=== PATIENT | female | born 1935 | race Caucasian/White ===

== ENCOUNTER 2016-11-12 17:54 | Inpatient (IN) | payer MEDICARE, OTHER ==
[~2016-11-12] VITALS: Ht 165.1 cm; Wt 83.9 kg
[~2016-11-12 17:54] MED LIST: DIGO250T72 PO; FURO-33 PO; LEVO25TA49 PO; LOSA50TA17 PO; MECL12.585 PO; MULT-806 PO; SERT-80 PO; WARF5TAB6 PO; WARF5TAB67 PO; [UNRECOGNIZED DRUG - CODE] PO
--- OUTSIDE RECORDS SUMMARY | 2016-11-12 17:59 | XMS REPORT | Continuity of Care Document ---
Author Author [facility] Organization [facility] Address Unknown Phone Unavailable Support Name Relationship Address Phone JOSIAH PEREZ MD Caregiver [address] [place] [address] [place] [address] LAUREN GARCIA DO Caregiver [address] [place] [address] DAKOTA GRIDER Next Of Kin [address] [place] [address] Insurance Providers Payer Name Policy Number Subscriber Name Relationship Medicare [id number] Regi Torres 20 Self [facility] [id number] Johnny Torres 01 Spouse Advance Directives Directive Response Recorded Date/Time Advanced Directives Type Living Will 03/26/14 7:22am Problems Medical Problems Problem Onset Date Status LLL Pneumonia Unknown Active Laceration of face without complication Unknown Active Contusion of head Unknown Active Laceration of face, complex Unknown Active Medications Medication Dose Route Sig Days/Qty Instructions Order Date Discontinued Date Status Warfarin Sodium 5 Mg PO ECHAVARRIA-TU-TH-SA 08/04/12 Active Warfarin Sodium 7.5 Mg PO -W-F 08/04/12 Active Sertraline Hcl 50 Mg PO DAILY 08/04/12 Active Losartan Potassium 50 Mg PO DAILY 08/04/12 Active Digoxin 250 Mcg PO DAILY 08/04/12 Active Multivitamins 1 Tab PO DAILY 08/04/12 Active Furosemide 40 Mg PO DAILY 08/04/12 Active Pravastatin Sodium 5 Mg PO BEDTIME 07/29/13 Active Labetalol Hcl 150 Mg PO TWICE A DAY 07/29/13 Active Levothyroxine Sodium 25 Mcg PO DAILY 07/29/13 Active Cholecalciferol (Vitamin D3) DAILY 03/26/14 Active Tramadol HCl 1-2 Tab PO Q6H/0300,0900,1500,2100 PRN headache 20 Qty Active Social History Social History Problem Response Recorded Date/Time Smoking Status Never smoker 03/26/2014 7:22am Hx Substance Use No 03/26/2014 7:22am Hx Alcohol Use No 03/26/2014 7:22am Has the pt used tobacco in the last 12 months No 07/29/2013 12:01am Query Response Start Date Stop Date Smoking Status Never smoker Hospital Discharge Instructions No hospital discharge instructions. Plan of Care No plan of care. Functional Status Query Response Date Recorded Physical Hygiene Self March 26, 2014 7:22am Disabilities None March 26, 2014 7:22am Devices Used None March 26, 2014 7:22am Dressing Self March 26, 2014 7:22am Ambulation Self March 26, 2014 7:22am Diet Self March 26, 2014 7:22am Mental Status Alert March 26, 2014 10:51am Disabilities None March 26, 2014 7:22am Devices Used None March 26, 2014 7:22am Physical Hygiene Self March 26, 2014 7:22am Dressing Self March 26, 2014 7:22am Ambulation Self March 26, 2014 7:22am Diet Self March 26, 2014 7:22am Allergies, Adverse Reactions, Alerts Allergen Type Severity Reaction Status Last Updated Erythromycin base Allergy Intermediate HIVES Active 03/26/14 Immunizations Name Given Type Hx Influenza Vaccination Y 06/2013 Historical Hx Pneumococcal Vaccination Y 06/2013 Historical Hx Tetanus, Diptheria, Pertussis LAST 5 YRS Historical Hx Influenza Vaccination Y 06/2013 Historical Hx Tetanus, Diptheria, Pertussis LAST 5 YRS Historical Vital Signs Acute Vital Signs Vital Response Date/Time Temperature (Fahrenheit) 96.8 deg F (96.8 - 99.1) Temperature (Calculated Celsius) 36.78578 degrees C (36.0 - 37.3) Pulse Rate (adult) 76 bpm (60 - 100) Respiratory Rate 20 breaths/min (10 - 20) O2 Sat by Pulse Oximetry 94 % (90 - 100) Blood Pressure 140/64 mm Hg Height 5 ft 5 in Weight 187 lb Body Mass Index 31.0 kg/m^2 Results Test Source Date Result Interp. Ref. Range Comments Activated Partial Thromboplast Time March 26, 2014 8:00am 67.9 SEC H 24 -36 Alanine Aminotransferase (ALT/SGPT) March 26, 2014 8:00am 24 U/L N 9- 52 Albumin March 26, 2014 8:00am 4.0 G/DL N 3.5-5.0 Albumin/Globulin Ratio March 26, 2014 8:00am 1.7 RATIO N 1.1-2.2 Alkaline Phosphatase March 26, 2014 8:00am 84 U/L N 38-126 Amylase Level July 28, 2013 9:07pm 45 U/L N 30-110 Anion Gap March 26, 2014 8:00am 10 MEQ/L N 5-15 Aspartate Amino Transf (AST/SGOT) March 26, 2014 8:00am 18 U/L N 14-36 BUN/Creatinine Ratio March 26, 2014 8:00am 30 RATIO H 6-26 Band Neutrophils # July 29, 2013 5:22am 3.7 T/MM3 - Band Neutrophils % July 29, 2013 5:22am 32.0 % DH 0-6 Basophils # (Auto) March 26, 2014 8:00am 0.0 T/MM3 N 0-0.2 Basophils (%) (Auto) March 26, 2014 8:00am 0.2 % N 0-2 Blood Urea Nitrogen March 26, 2014 8:00am 21.0 MG/DL H 7-17 Calcium Level March 26, 2014 8:00am 9.2 MG/DL N 8.4-10.2 Calculated Osmolality March 26, 2014 8:00am 274 MOSM/KG N 261-280 Carbon Dioxide Level March 26, 2014 8:00am 28 MEQ/L N 22-30 Chloride Level March 26, 2014 8:00am 103 MEQ/L N 98-107 Creatinine March 26, 2014 8:00am 0.7 MG/DL N 0.7-1.2 D-Dimer August 05, 2012 4:38am < 150 NG/ML 0-230 <224 NG/ML= PRESUMPTIVE NEGATIVE FOR PE OR DVT>224 NG/ML=ADDITIONAL EVALUATION FOR PE OR DVT RECOMMENDED Digoxin Level March 26, 2014 8:00am 1.1 NG/ML N 0.8-2.0 Eosinophils # (Auto) March 26, 2014 8:00am 0.2 T/MM3 N 0-0.5 Eosinophils # (Manual) July 28, 2013 9:07pm 0.1 T/MM3 N 0-0.5 Eosinophils % (Manual) July 28, 2013 9:07pm 1.0 % N 0-4 Eosinophils (%) (Auto) March 26, 2014 8:00am 2.7 % N 0-4 Escherichia coli 0157 Antigen July 29, 2013 2:30pm Negative - Has specimen been collected/obtained? Y Globulin March 26, 2014 8:00am 2.4 G/DL N 2.4-3.6 Glucose Level March 26, 2014 8:00am 105 MG/DL N 65-110 Hematocrit March 26, 2014 8:00am 40.2 % N 36-46 Hemoglobin March 26, 2014 8:00am 13.2 GM/DL N 12-16 Influenza Type A Antigen July 28, 2013 10:37pm Positive - This test can not distinguish influenza A virus subtypes,e.g., seasonal influenza A and novel influenza A (H1N1). Influenza Type B Antigen July 28, 2013 10:37pm Negative - Negative for Flu B protein antigen. Assay sensitivity isbetween 65-83%. A negative result does not exclude influenza virus infection. "Influenza FA" may be ordered if clinical presentation warrants confirmatory testing. Lipase July 28, 2013 9:07pm 35 U/L N 23-300 Lymphocytes # (Auto) March 26, 2014 8:00am 0.8 T/MM3 L 1-4.8 Lymphocytes # (Manual) July 29, 2013 5:22am 0.7 T/MM3 L 1-4.8 Lymphocytes % (Manual) July 29, 2013 5:22am 6.0 % L 23-45 Lymphocytes (%) (Auto) March 26, 2014 8:00am 14.4 % L 23-45 Magnesium Level August 01, 2013 6:00am 1.9 MG/DL N 1.6-2.3 Mean Corpuscular Hemoglobin March 26, 2014 8:00am 30.1 UUG N 26-34 Mean Corpuscular Hemoglobin Concent March 26, 2014 8:00am 32.8 GM/DL N 31-37 Mean Corpuscular Volume March 26, 2014 8:00am 91.6 UM3 N 80-100 Mean Platelet Volume March 26, 2014 8:00am 10.9 UM3 N 9.4-12.4 Monocytes # (Auto) March 26, 2014 8:00am 0.5 T/MM3 N 0-0.8 Monocytes # (Manual) July 29, 2013 5:22am 0.1 T/MM3 N 0-0.8 Monocytes % (Manual) July 29, 2013 5:22am 1.0 % N 0-9.0 Monocytes (%) (Auto) March 26, 2014 8:00am 9.1 % H 0-9.0 Neutrophils # (Auto) March 26, 2014 8:00am 4.0 T/MM3 N 1.8-7.7 Neutrophils # (Manual) July 29, 2013 5:22am 7.1 T/MM3 N 1.8-7.7 Neutrophils % (Manual) July 29, 2013 5:22am 61.0 % N 33-66 Neutrophils (%) (Auto) March 26, 2014 8:00am 73.4 % H 33-66 Platelet Count March 26, 2014 8:00am 136 T/MM3 N 130-400 Potassium Level March 26, 2014 8:00am 4.1 MEQ/L N 3.6-5 Prealbumin July 29, 2013 5:22am 16.3 MG/DL L 17.6-36.0 Prothromb Time International Ratio March 26, 2014 8:00am 2.81 H 0.81- 1.09 THERAPUTIC RANGE=2.00-3.00 FOR ANTI-THROMBOSIS THERAPUTIC RANGE=2.50- 3.50 FOR IMPLANTED VALVE RDW Standard Deviation March 26, 2014 8:00am 44.3 FL N 36.9-50.2 Red Blood Count March 26, 2014 8:00am 4.39 M/MM3 N 4.00-5.20 Sodium Level March 26, 2014 8:00am 141 MEQ/L N 134-144 Stool Occult Blood July 29, 2013 2:30pm Negative - Has specimen been collected/obtained? Y Stool for White Cells July 29, 2013 2:30pm Negative - Has specimen been collected/obtained? Y Thyroid Stimulating Hormone (TSH) July 29, 2013 5:22am 0.68 MIU/L N 0.47-4.68 COMMENT blood in lab Total Bilirubin March 26, 2014 8:00am 0.60 MG/DL N 0.20-1.30 Total Protein March 26, 2014 8:00am 6.4 G/DL N 6.3-8.2 Troponin I March 26, 2014 8:00am < 0.012 ng/ml 0-0.12 Urine Bacteria March 26, 2014 10:52am None seen - Has specimen been collected/obtained? Y Urine Bilirubin March 26, 2014 10:52am Negative - Has specimen been collected/obtained? Y Urine Blood March 26, 2014 10:52am 1+ H - Has specimen been collected/ obtained? Y Urine Collection Type March 26, 2014 10:52am Voided-not cc-midstr - Has specimen been collected/obtained? Y Urine Color March 26, 2014 10:52am Yellow - Has specimen been collected/obtained? 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 Urine Glucose (UA) March 26, 2014 10:52am Negative - Has specimen been collected/obtained? Y Urine Ketones March 26, 2014 10:52am Negative - Has specimen been collected/obtained? Y Urine Leukocyte Esterase March 26, 2014 10:52am Negative - Has specimen been collected/obtained? Y Urine Mucus July 28, 2013 10:20pm Present - Has specimen been collected/obtained? Y Urine Nitrite March 26, 2014 10:52am Negative - Has specimen been collected/obtained? Y Urine Protein March 26, 2014 10:52am Negative - Has specimen been collected/obtained? Y Urine RBC March 26, 2014 10:52am 1-3 /HPF - Has specimen been collected/obtained? Y Urine Specific [place] March 26, 2014 10:52am >=1.030 H - Has specimen been collected/obtained? Y Urine Squamous Epithelial Cells March 26, 2014 10:52am 0-5 - Has specimen been collected/obtained? Y Urine Turbidity March 26, 2014 10:52am Clear - Has specimen been collected/obtained? Y Urine Urobilinogen March 26, 2014 10:52am 0.2 EU/DL - Has specimen been collected/obtained? Y Urine WBC March 26, 2014 10:52am 0-1 /HPF - Has specimen been collected/obtained? Y Urine Yeast July 28, 2013 10:20pm 1+ H - Has specimen been collected/obtained? Y Urine pH March 26, 2014 10:52am 6.0 - Has specimen been collected/ obtained? Y Vitamin B12 Level July 29, 2013 5:22am 205 PG/ML L 239-931 White Blood Count March 26, 2014 8:00am 5.5 T/MM3 N 4.5-11.0 Chemistry Specimen Hemolysis March 26, 2014 8:00am < 15 0-25 0-25: No Hemolysis.26-70: Slight Hemolysis - can falsely elevate K and Urine Protein. 71-285: Moderate Hemolysis - can falsely elevate K, Troponin I, CA 19-9, PTH, CSF GLucose, and Urine Protein, and can falsely decrease Phenytoin. 286-999: Gross Hemolysis - can falsely elevate K, Troponin I, CA 19-9, PTH, CSF Glucose, and Urine Protine, and can falsely decrease Phenytoin. Recommend specimen recollection. Turbidity March 26, 2014 8:00am < 20 0-20 Glomerular Filtration Rate Calc March 26, 2014 8:00am 81 - Immature Granulocyte # (Auto) March 26, 2014 8:00am 0.01 T/MM3 N 0.00- 0.03 Immature Granulocyte % (Auto) March 26, 2014 8:00am 0.2 % N 0.0-0.5 Venous Blood Lactate July 28, 2013 9:07pm 1.0 MMOL/L N 0.6-2.2 Procalcitonin July 28, 2013 9:07pm 0.09 NG/ML - PCT </=0.5 ng/mL - sepsis not likely;PCT >0.5 and </=2 ng/mL - sepsis possible; PCT >2 ng/mL - sepsis likely; PCT >/=10 ng/mL - systemic inflammatory response - sepsis or septic shock highly indicated. Icterus Index March 26, 2014 8:00am < 2 0-7 C. difficile Toxin B Gene (PCR) July 29, 2013 2:30pm Negative - If Toxin A is clinically indicated, treat accordingly. Blood Culture Blood July 28, 2013 9:07pm NO GROWTH AFTER 5 DAYS Stool Culture Stool July 29, 2013 2:30pm Gram Stain Sputum-Expectorated Sputum July 29, 2013 2:30pm Urine Culture Urine, Straight Cath July 28, 2013 11:06pm Kleb Pneumoniae Ssp Pneumoniae Name: REGI TORRES Unit #: [id number] : 1935 Sex: F [place] [facility] [place] [facility] DOS: 03/06/14 Signed Report #: [id number] DIAGNOSTIC IMAGING REPORT TYPE OF EXAM: CT CHEST W/CONTRAST Dictated By: DONAL SILVA MD INDICATION: ITS.REASON: 785.[address] CHEST W/CONTRAST: Comparison: Chest CT dated February 10, 2013 Technique: Axial CT images were performed through the chest after the administration of intravenous contrast. Contrast: Omnipaque 300 75 mL Findings: Small right middle lobe noncalcified nodule on image number 35 is unchanged. Probable intrapulmonary lymph node along the minor fissure and image number 32 is stable. Small right lower lobe nodules are also unchanged. Nodules in the left lower lobe are stable. No definite new pulmonary nodules or masses. No pleural effusion or pneumothorax. Lungs are otherwise clear. No axillary or mediastinal lymphadenopathy. There is some mild asymmetric skin thickening of the left breast. This is unchanged. Moderate pericardial effusion is stable. Heart remains enlarged. The visualized portions of the upper abdomen show no significant finding. Small hiatal hernia. Impression: 1. Stable bilateral pulmonary nodules. These are most likely due to prior granulomatous infection. A repeat CT in one year could be performed to document two years of stability and confirm a benign etiology. 2. Asymmetric left breast skin thickening. This is consistent with the patient 's known history of radiation therapy. . Procedures No known history of procedures. Encounters Encounter Location Date/Time Departed Emergency Room [facility] 03/26/14 7:18am Registered Clinic [facility] 03/06/14 1:15pm Recent Diagnosis
--- OUTSIDE RECORDS SUMMARY | 2016-11-12 17:59 | XMS REPORT | Continuity of Care Document ---
Author Author [facility] Organization [facility] Address Unknown Phone Unavailable Support Name Relationship Address Phone LAUREN GARCIA DO Caregiver [address] [place] [address] ELODIA GUERRERO MD Caregiver [facility] [address] [place] [address] [address] [place] [address] DAKOTA GRIDER Next Of Kin [address] [place] [address] Insurance Providers Payer Name Policy Number Subscriber Name Relationship Medicare [id number] Mary Torres 20 Self [facility] [id number] Johnny Torres 01 Spouse Advance Directives Directive Response Recorded Date/Time Ordered Resuscitation Status Full Code 05/19/14 1:02pm Problems Medical Problems Problem Onset Date Status LLL Pneumonia Unknown Active Laceration of face without complication Unknown Active Contusion of head Unknown Active Laceration of face, complex Unknown Active Laceration of face without complication Unknown Active Medications Medication Dose Route Sig Days/Qty Instructions Order Date Discontinued Date Status Warfarin Sodium 5 Mg PO ECHAVARRIA-TU-TH-SA 08/04/12 Active Warfarin Sodium 7.5 Mg PO M-W-08/04/12 Active Sertraline Hcl 50 Mg PO DAILY 08/04/12 Active Losartan Potassium 50 Mg PO DAILY 08/04/12 Active Digoxin 250 Mcg PO DAILY 08/04/12 Active Multivitamins 1 Tab PO DAILY 08/04/12 Active Furosemide 40 Mg PO NEEDED 08/04/12 Active Labetalol Hcl 150 Mg PO TWICE A DAY 07/29/13 Active Levothyroxine Sodium 25 Mcg PO DAILY 07/29/13 Active Cholecalciferol (Vitamin D3) DAILY 03/26/14 Active Tramadol HCl 1-2 Tab PO Q6H/0300,0900,1500,2100 PRN headache 20 Qty Active Social History Social History Problem Response Recorded Date/Time Smoking Status Never smoker 05/22/2014 7:52am Chewing Tobacco Status No 05/22/2014 7:52am Hx Substance Use No 05/22/2014 7:52am Hx Alcohol Use No 05/22/2014 7:52am Has the pt used tobacco in the last 12 months No 05/22/2014 7:52am Query Response Start Date Stop Date Smoking Status Never smoker Hospital Discharge Instructions No hospital discharge instructions. Plan of Care No plan of care. Functional Status Query Response Date Recorded Physical Hygiene Self March 26, 2014 7:22am Physical Hygiene Self March 26, 2014 7:22am Allergies, Adverse Reactions, Alerts Allergen Type Severity Reaction Status Last Updated Angiotensin-converting enzyme inhibitor Adverse Reaction Unknown COUGH Active 05/19/14 Erythromycin base Allergy Intermediate HIVES Active 03/26/14 Pravastatin Adverse Reaction Unknown SIDE ACHE Active 05/19/14 Olmesartan Adverse Reaction Unknown COUGH Active 05/19/14 Rosuvastatin Adverse Reaction Unknown SIDE ACHE Active 05/19/14 Immunizations Name Given Type Hx Influenza Vaccination Y 05/2014 Historical Hx Pneumococcal Vaccination Y 06/2013 Historical Hx Tetanus, Diptheria, Pertussis LAST 5 YRS Historical Hx Influenza Vaccination Y 05/2014 Historical Hx Tetanus, Diptheria, Pertussis LAST 5 YRS Historical Vital Signs Acute Vital Signs Vital Response Date/Time Temperature (Fahrenheit) 97.9 deg F (96.8 - 99.1) Temperature (Calculated Celsius) 36.53286 degrees C (36.0 - 37.3) Temperature Source Temporal Pulse Rate (adult) 70 bpm (60 - 100) Respiratory Rate 16 breaths/min (10 - 20) O2 Sat by Pulse Oximetry 92 % (90 - 100) Oxygen Delivery Method Room Air Blood Pressure 104/58 mm Hg Blood Pressure Source Automatic Cuff Height 5 ft 6 in Weight 186 lb Body Mass Index 30.0 kg/m^2 Results Test Source Date Result Interp. [...] 9:07pm 45 U/L N 30-110 Anion Gap May 22, 2014 7:33am 9 MEQ/L N 5-15 COMMENT PRE-OP WILL CALL Aspartate Amino Transf (AST/SGOT) March 26, 2014 8:00am 18 U/L N 14-36 BUN/Creatinine Ratio May 22, 2014 7:33am 31 RATIO H 6-26 COMMENT PRE-OP WILL CALL Band Neutrophils # July 29, 2013 5:22am 3.7 T/MM3 - Band Neutrophils % July 29, 2013 5:22am 32.0 % DH 0-6 Basophils # (Auto) May 22, 2014 7:33am 0.0 T/MM3 N 0-0.2 COMMENT PRE-OP WILL CALL Basophils (%) (Auto) May 22, 2014 7:33am 0.6 % N 0-2 COMMENT PRE- OP WILL CALL Blood Urea Nitrogen May 22, 2014 7:33am 25.0 MG/DL H 7-17 COMMENT PRE-OP WILL CALL C. difficile Toxin B Gene (PCR) July 29, 2013 2:30pm Negative - If Toxin A is clinically indicated, treat accordingly. Calcium Level May 22, 2014 7:33am 9.7 MG/DL N 8.4-10.2 COMMENT PRE- OP WILL CALL Calculated Osmolality May 22, 2014 7:33am 272 MOSM/KG N 261-280 COMMENT PRE-OP WILL CALL Carbon Dioxide Level May 22, 2014 7:33am 30 MEQ/L N 22-30 COMMENT PRE-OP WILL CALL Chemistry Specimen Hemolysis May 22, 2014 7:33am < 15 0-25 0-25: No Hemolysis.26-70: Slight [...] can falsely decrease Phenytoin. Recommend specimen recollection. Chloride Level May 22, 2014 7:33am 100 MEQ/L N 98-107 COMMENT PRE- OP WILL CALL Creatinine May 22, 2014 7:33am 0.8 MG/DL N 0.7-1.2 COMMENT PRE-OP WILL CALL D-Dimer August 05, 2012 4:38am < 150 NG/ML 0-230 <224 NG/ML= PRESUMPTIVE NEGATIVE FOR PE OR DVT>224 NG/ML=ADDITIONAL EVALUATION FOR PE OR DVT RECOMMENDED Digoxin Level March 26, 2014 8:00am 1.1 NG/ML N 0.8-2.0 Eosinophils # (Auto) May 22, 2014 7:33am 0.2 T/MM3 N 0-0.5 COMMENT PRE-OP WILL CALL Eosinophils # (Manual) July 28, 2013 9:07pm 0.1 T/MM3 N 0-0.5 Eosinophils % (Manual) July 28, 2013 9:07pm 1.0 % N 0-4 Eosinophils (%) (Auto) May 22, 2014 7:33am 3.4 % N 0-4 COMMENT PRE- OP WILL CALL Escherichia coli 0157 Antigen July 29, 2013 2:30pm Negative - Has specimen been collected/obtained? Y Globulin March 26, 2014 8:00am 2.4 G/DL N 2.4-3.6 Glomerular Filtration Rate Calc May 22, 2014 7:33am 70 - COMMENT PRE-OP WILL CALL Glucose Level May 22, 2014 7:33am 97 MG/DL N 65-110 COMMENT PRE-OP WILL CALL Hematocrit May 22, 2014 7:33am 39.8 % N 36-46 COMMENT PRE-OP WILL CALL Hemoglobin May 22, 2014 7:33am 13.0 GM/DL N 12-16 COMMENT PRE-OP WILL CALL Icterus Index May 22, 2014 7:33am < 2 0-7 COMMENT PRE-OP WILL CALL Immature Granulocyte # (Auto) May 22, 2014 7:33am 0.02 T/MM3 N 0.00- 0.03 COMMENT PRE-OP WILL CALL Immature Granulocyte % (Auto) May 22, 2014 7:33am 0.4 % N 0.0-0.5 COMMENT PRE-OP WILL CALL Influenza Type A Antigen July 28, 2013 [...] 35 U/L N 23-300 Lymphocytes # (Auto) May 22, 2014 7:33am 0.9 T/MM3 L 1-4.8 COMMENT PRE-OP WILL CALL Lymphocytes # (Manual) July 29, 2013 5:22am 0.7 T/MM3 L 1-4.8 Lymphocytes % (Manual) July 29, 2013 5:22am 6.0 % L 23-45 Lymphocytes (%) (Auto) May 22, 2014 7:33am 19.7 % L 23-45 COMMENT PRE-OP WILL CALL Magnesium Level August 01, 2013 6:00am 1.9 MG/DL N 1.6-2.3 Mean Corpuscular Hemoglobin May 22, 2014 7:33am 30.1 UUG N 26-34 COMMENT PRE-OP WILL CALL Mean Corpuscular Hemoglobin Concent May 22, 2014 7:33am 32.7 GM/DL N 31-37 COMMENT PRE-OP WILL CALL Mean Corpuscular Volume May 22, 2014 7:33am 92.1 UM3 N 80-100 COMMENT PRE-OP WILL CALL Mean Platelet Volume May 22, 2014 7:33am 10.6 UM3 N 9.4-12.4 COMMENT PRE-OP WILL CALL Monocytes # (Auto) May 22, 2014 7:33am 0.4 T/MM3 N 0-0.8 COMMENT PRE-OP WILL CALL Monocytes # (Manual) July 29, 2013 5:22am 0.1 T/MM3 N 0-0.8 Monocytes % (Manual) July 29, 2013 5:22am 1.0 % N 0-9.0 Monocytes (%) (Auto) May 22, 2014 7:33am 8.0 % N 0-9.0 COMMENT PRE- OP WILL CALL Neutrophils # (Auto) May 22, 2014 7:33am 3.2 T/MM3 N 1.8-7.7 COMMENT PRE-OP WILL CALL Neutrophils # (Manual) July 29, 2013 5:22am 7.1 T/MM3 N 1.8-7.7 Neutrophils % (Manual) July 29, 2013 5:22am 61.0 % N 33-66 Neutrophils (%) (Auto) May 22, 2014 7:33am 67.9 % H 33-66 COMMENT PRE-OP WILL CALL Platelet Count May 22, 2014 7:33am 145 T/MM3 N 130-400 COMMENT PRE- OP WILL CALL Potassium Level May 22, 2014 7:33am 4.1 MEQ/L N 3.6-5 COMMENT PRE- OP WILL CALL Prealbumin July 29, 2013 5:22am 16.3 MG/DL L 17.6-36.0 Procalcitonin July 28, 2013 9:07pm 0.09 NG/ML - PCT </=0.5 ng/mL - sepsis not likely;PCT >0.5 and </=2 ng/mL - sepsis possible; PCT >2 ng/mL - sepsis likely; PCT >/=10 ng/mL - systemic inflammatory response - sepsis or septic shock highly indicated. Prothromb Time International Ratio May 22, 2014 7:33am 1.23 H 0.81- 1.09 THERAPUTIC RANGE=2.00-3.00 FOR ANTI-THROMBOSIS THERAPUTIC RANGE=2.50- 3.50 FOR IMPLANTED VALVE RDW Standard Deviation May 22, 2014 7:33am 45.6 FL N 36.9-50.2 COMMENT PRE-OP WILL CALL Red Blood Count May 22, 2014 7:33am 4.32 M/MM3 N 4.00-5.20 COMMENT PRE-OP WILL CALL Sodium Level May 22, 2014 7:33am 139 MEQ/L N 134-144 COMMENT PRE- OP WILL CALL Stool Occult Blood July 29, 2013 2:30pm [...] 26, 2014 8:00am < 0.012 ng/ml 0-0.12 Turbidity May 22, 2014 7:33am < 20 0-20 COMMENT PRE-OP WILL CALL Urine Bacteria March 26, 2014 10:52am None [...] 28, 2013 10:20pm Cult reflexed &setup - [employer]. Urine Glucose (UA) March 26, 2014 10:52am [...] Has specimen been collected/obtained? Y Urine Specific [place] March 26, 2014 10:52am >=1.030 H - [...] - Has specimen been collected/ obtained? Y Venous Blood Lactate July 28, 2013 9:07pm 1.0 MMOL/L N 0.6-2.2 Vitamin B12 Level July 29, 2013 5:22am 205 PG/ML L 239-931 White Blood Count May 22, 2014 7:33am 4.7 T/MM3 N 4.5-11.0 COMMENT PRE-OP WILL CALL Blood Culture Blood July 28, 2013 9:07pm NO GROWTH AFTER 5 DAYS Stool Culture Stool July 29, 2013 2:30pm Gram Stain Sputum-Expectorated Sputum July 29, 2013 2:30pm Urine Culture Urine, Straight Cath July 28, 2013 11:06pm Kleb Pneumoniae Ssp Pneumoniae Name: MARY TORRES Unit #: [id number] : 1935 Sex: F Loc / Svc: ED DOS: 03/26/14 Signed Report #: [id number] DIAGNOSTIC IMAGING REPORT TYPE OF EXAM: CT CERVICAL SPINE W/O CONTRAST Dictated By: ROBY GUTIERREZ MD INDICATION: ITS.REASON: fall, head injury--neck pain CT CERVICAL SPINE W/O CONTRAST: Moderate to severe multilevel cervical spondylosis, due to multilevel degenerative changes. These include discogenic disease, facet joint arthropathy, and uncovertebral joint hypertrophy. However, no acute bony abnormality. No fracture. . Procedures Procedure Status Date Provider(s) INTMD RPR FACE/MM 5.1-7.5 CM completed 03/26/14 JOSIAH PEREZ MD RPR F/E/E/N/L/M 2.5 CM/< completed 03/26/14 JOSIAH PEREZ MD THER/PROPH/DIAG INJ IV PUSH completed 03/26/14 Scar revision completed 05/22/14 ELODIA GUERRERO MD Encounters Encounter Location Date/Time Departed Emergency Room [facility] 03/26/14 7:18am Registered Clinic [facility] 03/06/14 1:15pm
[2016-11-12] MEDS ORDERED: TRAM50TA4 PO (18:15)
[2016-11-12] MEDS ORDERED: VALA500T42 PO (18:15)
[2016-11-12] MEDS ORDERED: LABE200T PO (18:15)
[2016-11-12] MEDS ORDERED: AMOX1TAB16 PO (18:16)
[2016-11-12] MEDS ORDERED: NORMAL SALINE 1,000 ML IV ONE (18:28)
[2016-11-12] MEDS ORDERED: ALBUTEROL/IPRATROPIUM INHAL. 2.5mg-0.5mg/3ml Neb. AEROSOL ONE (18:30)
[2016-11-12] MEDS ORDERED: CEFTRIAXONE I.V. (ER USE ONLY) 1 G in NORMAL SALINE 100 ML IV ONE (18:30)
--- NOTE | 2016-11-12 18:34 | ERPDOC ---
Departure Disposition Decision Date: Nov 12, 2016 Disposition Decision Time: 19:40 Disposition: 02 TO [facility] Impression Impression Impression: Primary Impression: CAP (community acquired pneumonia) Severity: Moderate Condition: Improved Seen By: Physician only Referrals: LAUREN GARCIA DO (Family) Problems/Meds/Labs Reviewed?: Yes Medications reviewed and manag: Yes Follow up care ordered?: Yes Mental Status: Alert, Oriented HPI - Dyspnea General Chief Complaint: Dyspnea/Respdistress Stated Complaint: TROUBLE BREATHING Time Seen by Provider: 18:06 Source: patient, family Exam Limitations: no limitations HPI - Dyspnea Initial Comments 81yo woman presents to the ER today with dyspnea. Pt has had progressive dyspnea at rest for the last 3 days. Saw her PCM today and was dx'ed with PNA. Was given an atbx in the office, but rx written was valtrex and tramadol. Pt has not improved since being seen/atbx in the AM. Occurred At: home Onset/Timing: Rapid, Getting worse Duration: other Severity: severe Activities at Onset: none Prior Episodes/Possible Cause: no prior episodes Modifying Factors: IMPROVES WITH: lying down, oxygen, rest, WORSE WITH: antibiotics, coughing Associated Symptoms: cough (Productive) Aspirin Treatment Today: contraindicated Allergies: Coded Allergies: erythromycin base (Verified Allergy, Unknown, HIVES, 11/12/16) Past History Past Medical History Metabolic: cancer, hypercholesterolemia, hypertension, hypothyroidism ENMT: allergies Cardiac: A-fib Hematologic: DVT Psychological: depression Surgical History General: gallbladder, other Family History Family PMH: FOUND: CT, cancer Vaccines Hx Influenza Vaccination: Yes (05/2014) Hx Pneumococcal Vaccination: Yes (06/2013) Review of Systems Constitutional Constitutional: DENIES: chills, fever Cardiovascular Cardiac: DENIES: chest pain, orthopnea Vascular: DENIES: pedal edema Pulmonary Respiratory: cough, dyspnea, sputum All other Systems All Other Systems: Reviewed and Negative Physical Exam General General Nourishment: well nourished, well developed, appears stated age, no acute distress, adult, obese General Body Habitus: well groomed Vitals and Pain First Documented Vital Signs Date Time Temp Pulse Resp B/P Pulse Ox O2 Delivery O2 Flow Rate FiO2 11/12/16 17:57 98.6 67 24 146/89 82 Room Air Weight: Kilograms: 83.000 Height (feet): 5 Height (inches): 5.50 Triage Pain Scale: RN VS reviewed by Provider: Yes Normal Exams: Head: Normocephalic w/o trauma Eyes: Pupils are PERRLA w/ EOMI, No scleral icterus, irritation ENMT: No facial trauma, nasal exudates, pharyngeal erythema Neck: Full range of motion, without adenopathy, JVD Lymphatic: No lymphadenopathy Musculoskeletal: No tenderness, or deformity noted Integumentary: No rashes, hives, or bruising noted Neurologic: Patient is alert, and oriented Psychiatric: Patient exhibits, appropriate attention Respiratory (brief) Respiratory: FOUND: equal bilaterally, rales (Througout with decreased air movement), symmetrical, NOT FOUND: clear all huston, wheezes Cardiovascular (brief) Cardiac: FOUND: regular rate, regular rhythm, NOT FOUND: click, gallop, murmur , pedal edema, peripheral edema, rub Capillary Refill: <2 sec Pulses: all distal extremities, equal, strong Abdomen (brief) Abdominal Brief: FOUND: bowel normo active x4, soft, NOT FOUND: distended, hepatosplenomegaly, pulsatile mass, tender Differential Diagnoses Considering: Acute Bronchitis, Asthma Exacerbation, COPD Exacerbation, Croup, Influenza, Pertussis, Pneumonia, Pneumothorax, Pulmonary Edema, Pulmonary Embolus, RSV, Sinusitis, Viral Syndrome Progress Results/Orders Orders Procedure Category Date Status Time Bmp - Basic Metabolic LAB 11/12/16 Complete Panel 18:28 Blood Gas, Arterial - LAB 11/12/16 Complete ABG 18:28 Probnp LAB 11/12/16 Complete 18:28 Cbc W/Auto LAB 11/12/16 Complete Diff-Reflex Manual 18:28 Blood Culture EZRA 11/12/16 In Process 18:28 D-Dimer LAB 11/12/16 Complete 18:28 PTT LAB 11/12/16 Complete 18:28 INR LAB 11/12/16 Complete 18:28 Troponin I W LAB 11/12/16 Complete Hemolysis Index 18:28 Ua, Dip Wreflex LAB 11/12/16 Logged Microsc & Chinese Herbalist 18:28 Influenza A/B By Pcr LAB 11/12/16 Logged 18:28 EKG EKG 11/12/16 Taken 18:28 Chest, Pa & Lateral RAD 11/12/16 Taken 18:28 Iv Lock (Ed Only) EDM 11/12/16 Transmitted 18:28 Normal Saline (Normal PHA 11/12/16 Complete Saline Iv) 18:28 Albuterol/Ipratropium PHA 11/12/16 Complete (Duoneb) 18:30 Methylprednisolone PHA 11/12/16 Complete Sod Succ (Solu-Medrol 18:30 Ceftriaxone I.V. (Er PHA 11/12/16 Complete Use Only) (Rocephin 18:30 Oxygen Administration EDM 11/12/16 Transmitted 18:28 Place In Facility: ED ADM 11/12/16 Transmitted Lab Results Laboratory Tests Test 11/12/16 18:50 11/12/16 18:54 Arterial Blood pH 7.388 Arterial Blood Partial Pressure CO2 46MMHG Arterial Blood pO2 at Patient Temp 76MMHG Arterial Blood HCO3 27MEQ/L Arterial Blood Total CO2 29MEQ/L Arterial Blood Oxygen Saturation 95.0% Arterial Blood Base Excess 2.0MMOL/L Oxygen Delivery Method (LAB) Nasal cannula,liters Blood Gas Oxygen Liter Flow 2 Blood Gas Oxygen Percent Given Blood Gas Vent Rate Blood Gas Tidal Volume ML White Blood Count 7.9T/MM3 Red Blood Count 3.96M/MM3 Hemoglobin 12.0GM/DL Hematocrit 37.2% Mean Corpuscular Volume 93.9UM3 Mean Corpuscular Hemoglobin 30.3UUG Mean Corpuscular Hemoglobin Concent 32.3GM/DL RDW Standard Deviation 46.1FL Platelet Count 119T/MM3 Mean Platelet Volume 10.9UM3 Immature Granulocyte % (Auto) % Neutrophils (%) (Auto) % Lymphocytes (%) (Auto) % Monocytes (%) (Auto) % Eosinophils (%) (Auto) % Basophils (%) (Auto) % Absolute Immature Granulocyte (auto T/MM3 Absolute Neutrophils (auto) T/MM3 Absolute Lymphocytes (auto) T/MM3 Absolute Monocytes (auto) T/MM3 Absolute Eosinophils (auto) T/MM3 Absolute Basophils (auto) T/MM3 Neutrophils % (Manual) 72.0% Band Neutrophils % 6.0% Lymphocytes % (Manual) 8.0% Monocytes % (Manual) 9.0% Eosinophils % (Manual) 4.0% Basophils % (Manual) 1.0% Absolute Neutrophils (Manual) 5.7T/MM3 Band Neutrophils # 0.5T/MM3 Lymphocytes # (Manual) 0.6T/MM3 Monocytes # (Manual) 0.7T/MM3 Eosinophils # (Manual) 0.3T/MM3 Basophils # (Manual) 0.1T/MM3 Red Cell Morphology Comment Normal Prothromb Time International Ratio 1.69 Activated Partial Thromboplast Time 63.0SEC D-Dimer < 150NG/ML Turbidity < 20 Sodium Level 145MEQ/L Potassium Level 4.6MEQ/L Chloride Level 105MEQ/L Carbon Dioxide Level 29MEQ/L Anion Gap 11MEQ/L Blood Urea Nitrogen 25.0MG/DL Creatinine 0.7MG/DL Glomerular Filtration Rate Calc 81 BUN/Creatinine Ratio 36RATIO Glucose Level 123MG/DL Calculated Osmolality 284MOSM/KG Calcium Level 9.4MG/DL Icterus Index < 2 Troponin I < 0.012ng/ml ZM-Tnt-Y-Type Natriuretic Peptide 1160PG/ML Chemistry Specimen Hemolysis < 15 Medications Current ED Medications Sodium Chloride (Normal Saline IV) 1,000 ml @ 125 mls/hr Q8H ONCE IV Last administered on 11/12/16 19:29; Start 11/12/16 at 18:28; Stop 11/13/16 at 02:27 ; Status DC Albuterol/ Ipratropium (Duoneb) 3 ml O ONCE AEROSOL Last administered on 18:47; Start 11/12/16 at 18:30; Stop 11/12/16 at 18:31; Status DC Methylprednisolone Sodium Succinate 125 mg 125 mg O ONCE IV Last administered on 11/12/16 19:26; Start 11/12/16 at 18:30; Stop 11/12/16 at 18:31; Status DC Ceftriaxone Sodium/Sodium Chloride (Rocephin/NS) 100 ml @ 200 mls/hr O ONCE IV Last administered on 11/12/16 19:29; Start 11/12/16 at 18:30; Stop at 18:59; Status DC EKG EKG : Rate: 60-100 Rhythm: atrial fibrillation [place]: normal QRS: normal Intervals: normal ST/T: non-specific changes Interpreted by: signing physician Consult/PCP Consult/PCP : Physician Contacted: Yong Hua Time Called: 19:37 Time of first response: 19:39 Type of discussion: Admit Discussion/PCP Discussion Details Will admit. Xray Xray : Xray: CXR PA/Lat Interpretation: Normal, Interpreted by TONIO Francis DO Nov 12, 2016 18:34
--- OUTSIDE RECORDS SUMMARY | 2016-11-12 18:39 | XMS REPORT | Continuity of Care Document ---
Author Author [facility] Organization [facility] Address Unknown Phone Unavailable Support Name Relationship Address Phone LAUREN GARCIA DO Caregiver [address] [place] [address] ELODIA GUERRERO MD Caregiver [facility] [address] [place] [address] [address] [place] [address] DAKOTA GRIDER Next Of Kin [address] [place] [address] Insurance Providers Payer Name Policy Number Subscriber Name Relationship Medicare [id number] Mary Torres 20 Self [facility] [id number] Johnny Torres 01 Spouse Advance Directives Directive [...] F (96.8 - 99.1) Temperature (Calculated Celsius) 36.50038 degrees C (36.0 - 37.3) Temperature Source [...] 28, 2013 10:20pm 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 Urine Glucose (UA) March 26, 2014 10:52am [...] Has specimen been collected/obtained? Y Urine Specific [place] March 26, 2014 10:52am >=1.030 H - [...] Ssp Pneumoniae Name: MARY TORRES Unit #: [id number] : 1935 Sex: F Loc / Svc: ED DOS: 03/26/14 Signed Report #: [id number] DIAGNOSTIC IMAGING REPORT TYPE OF EXAM: CT [...] Encounters Encounter Location Date/Time Departed Emergency Room [facility] 03/26/14 7:18am Registered Clinic [facility] 03/06/14 1:15pm
--- OUTSIDE RECORDS SUMMARY | 2016-11-12 18:39 | XMS REPORT | Continuity of Care Document ---
Author Author [facility] Organization [facility] Address Unknown Phone Unavailable Support Name Relationship Address Phone JOSIAH PEREZ MD Caregiver [address] [place] [address] [place] [address] LAUREN GARCIA DO Caregiver [address] [place] [address] DAKOTA GRIDER Next Of Kin [address] [place] [address] Insurance Providers Payer Name Policy Number Subscriber Name Relationship Medicare [id number] Regi Torres 18 Self 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 Urine Glucose (UA) March 26, 2014 10:52am [...] Has specimen been collected/obtained? Y Urine Specific [place] March 26, 2014 10:52am >=1.030 H - [...] Ssp Pneumoniae Name: REGI TORRES Unit #: [id number] : 1935 Sex: F Loc / [facility]: [facility] DOS: 03/06/14 Signed Report #: [id number] DIAGNOSTIC IMAGING REPORT TYPE OF EXAM: CT [...] Encounters Encounter Location Date/Time Departed Emergency Room [facility] 03/26/14 7:18am Registered Clinic [facility] 03/06/14 1:15pm Recent Diagnosis
[2016-11-12 19:02] LABS: HCT - HEMATOCRIT 37.2 % (36-46); MEAN CORPUSCULAR HGB 30.3 UUG (26-34); MEAN CORPUSCULAR HGB CONC(MCHC 32.3 GM/DL (31-37); MEAN CORPUSCULAR VOLUME 93.9 UM3 (80-100); MEAN PLATELET VOLUME 10.9 UM3 (9.4-12.4); RED BLOOD COUNT 3.96 M/MM3 (4.00-5.20); WBC - WHITE BLOOD COUNT 7.9 T/MM3 (4.5-11.0)
--- NOTE | 2016-11-12 19:02 | NUR ---
RADIOLOGY PT TO RADIOLOGY BY CART AT THIS TIME.
[2016-11-12 19:10] LABS: INR 1.69 (0.76-1.04); PROTHROMBIN TIME 18.4 SEC (9.31-12.49)
[2016-11-12 19:11] LABS: ANION GAP 11 MEQ/L (5-15); BUN/CREATININE RATIO 36 RATIO (6-26); CALCIUM 9.4 MG/DL (8.4-10.2); CHLORIDE 105 MEQ/L (98-107); CO2 - CARBON DIOXIDE 29 MEQ/L (22-30); CREATININE 0.7 MG/DL (0.7-1.2); GLOMERULAR FILTRATION RATE 81; GLUCOSE 123 MG/DL (65-110); POTASSIUM 4.6 MEQ/L (3.6-5); SODIUM 145 MEQ/L (134-144)
[2016-11-12 19:16] LABS: BAND NEUTROPHILS # 0.5 T/MM3; BASOPHILS # (MANUAL) 0.1 T/MM3 (0-0.2); EOSINOPHILS # (MANUAL) 0.3 T/MM3 (0-0.5); LYMPHOCYTES # (MANUAL) 0.6 T/MM3 (1-4.8); MONOCYTES # (MANUAL) 0.7 T/MM3 (0-0.8); NEUTROPHILS #(MANUAL)-ABSOLUTE 5.7 T/MM3 (1.8-7.7); TOTAL CELLS COUNTED 100 %
[2016-11-12 19:23] LABS: PROBNP 1160 PG/ML (0-175)
--- NOTE | 2016-11-12 19:23 | NUR ---
RETURN PT RETURNED FROM RADIOLOGY BY CART AT THIS TIME.
--- NOTE | 2016-11-12 19:35 | NUR ---
STATUS PT REPORTS FEELS EASIER TO BREATHE AFTER BREATHING TX. AUDIBLE WHEEZING STILL NOTED; HOWEVER, BREATH SOUNDS NOT DIMINISHED. DENIES FURTHER NEEDS AT THIS TIME. CALL LIGHT WITHIN REACH. VSS, WILL CONTINUE TO MONITOR.
--- OUTSIDE RECORDS SUMMARY | 2016-11-12 20:10 | XMS REPORT | Continuity of Care Document ---
Author Author [facility] Organization [facility] Address Unknown Phone Unavailable Support Name Relationship Address Phone JOSIAH PEREZ MD Caregiver [address] [place] [address] [place] [address] LAUREN GARCIA DO Caregiver [address] [place] [address] DAKOTA GRIDER Next Of Kin [address] [place] [address] Insurance Providers Payer Name Policy Number Subscriber Name Relationship Medicare [id number] Regi Torres 20 Self [facility] [id number] Johnny Torres 01 Spouse Advance Directives Directive [...] F (96.8 - 99.1) Temperature (Calculated Celsius) 36.99772 degrees C (36.0 - 37.3) Pulse Rate [...] 28, 2013 10:20pm 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 Urine Glucose (UA) March 26, 2014 10:52am [...] Has specimen been collected/obtained? Y Urine Specific [place] March 26, 2014 10:52am >=1.030 H - [...] Ssp Pneumoniae Name: REGI TORRES Unit #: [id number] : 1935 Sex: F Loc / [facility] DOS: 03/06/14 Signed Report #: [id number] DIAGNOSTIC IMAGING REPORT TYPE OF EXAM: CT [...] Encounters Encounter Location Date/Time Departed Emergency Room [facility] 03/26/14 7:18am Registered Clinic [facility] 03/06/14 1:15pm Recent Diagnosis
--- OUTSIDE RECORDS SUMMARY | 2016-11-12 20:10 | XMS REPORT | Continuity of Care Document ---
Author Author [facility] Organization [facility] Address Unknown Phone Unavailable Support Name Relationship Address Phone LAUREN GARCIA DO Caregiver [address] [place] [address] ELODIA GUERRERO MD Caregiver [facility] PLAST[facility] SURGERY [address] [place] [address] [address] [place] [address] DAKOTA GRIDER Next Of Kin [address] [place] [address] Insurance Providers Payer Name Policy Number Subscriber Name Relationship Medicare [id number] Mary Torres 20 Self 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 Urine Glucose (UA) March 26, 2014 10:52am [...] Has specimen been collected/obtained? Y Urine Specific [place] March 26, 2014 10:52am >=1.030 H - [...] Ssp Pneumoniae Name: MARY TORRES Unit #: [id number] : 1935 Sex: F Loc / Svc: ED DOS: 03/26/14 Signed Report #: [id number] DIAGNOSTIC IMAGING REPORT TYPE OF EXAM: CT [...] Encounters Encounter Location Date/Time Departed Emergency Room [facility] 03/26/14 7:18am Registered Clinic [facility] 03/06/14 1:15pm
[2016-11-12] MEDS ORDERED: CEFTRIAXONE 1 G in NORMAL SALINE 100 ML IV SCH (20:15)
[2016-11-12] MEDS ORDERED: AZITHROMYCIN 500 MG in NORMAL SALINE 250 ML IV SCH (20:15)
--- NOTE | 2016-11-12 20:16 | NUR ---
REPORT CALLED TO CHACHO DOLAN ON [facility]. DENIES QUESTIONS.
--- NOTE | 2016-11-12 20:25 | NUR ---
admit status alert,oriented, cooperative with admission process. BP remains elevated, taken manually. Will give scheduled labetalol. Denies h.a. States mild generalized discomfort "from falling" at home. Lg. bruise to RUE. Lower abdomen with large bruise, pt. states fell against the back of a chair. Sm. bruise to upper L thigh. Pt. repositions herself for comfort. Iv infusing, site without complications. Lungs with coarseness, bilat. Loose sounding cough, no sputum.
[2016-11-12 20:32] VITALS: BP 178/74; PULSE 82; RESP 22; TEMP 99.9; O2SAT 95
[2016-11-12 20:33] VITALS: Ht 165.1 cm; Wt 83.9 kg
[2016-11-12] MEDS ORDERED: LEVOFLOXACIN 750 mg IVPB 750 MG in D5W 150 ML IV SCH (21:30)
--- NOTE | 2016-11-12 21:46 | HPPDOC ---
GERTRUDIS MCGRAW MD 11/12/16 2138: HPI - Adult Date DATE: 11/12/16 TIME: 21:35 General Chief Complaint: weakness History of Present Illness This is a 81-year-old female who describes 3 days of increasing shortness of breath. The patient saw her primary care physician this morning who prescribed an antibiotic. The patient states that since she got home this morning she had continued shortness of breath with a cough productive of green sputum. The patient states in general she has not felt well for the past 2 weeks. The patient fell 2 over the past week. Non-syncopal. The patient denies fever chills or sweats. The patients evaluation in our emergency department demonstrates possibility of early right lower lobe infiltrate. The patient is mildly hypoxic requiring 2 L of oxygen. At this time the patient will be admitted for further treatment of community-acquired pneumonia and mild hypoxia. Past Medical History Past Medical History breast cancer HTN atrial fibrillation Surgical History Patient's Surgical History: cholcystectomy lumpectomy bilateral cataract extraction Current Medications Home Meds Reported Medications Amox Tr/Potassium Clavulanate (Amox Tr-K Clv 875-125 mg Tab) 875 Mg Tablet, 1 TAB PO BID for 7 Days starting 11/12/16 11/12/16 Tramadol HCl (Tramadol HCl) 50 Mg Tablet, 50 MG PO TID Y for PAIN 11/12/16 Valacyclovir HCl (Valacyclovir) 500 Mg Tablet, 1000 MG PO TID for 10 Days starting 11/12/16 11/12/16 Labetalol HCl (Labetalol HCl) 200 Mg Tablet, 100 MG PO BID 11/12/16 Levothyroxine Sodium (Synthroid) 25 Mcg Tablet, 25 MCG PO DAILY 07/29/13 Furosemide (Furosemide) 40 Mg Tablet, 40 MG PO PRN 08/04/12 Multivitamins (Multivitamin) 1 Tab Tablet, 1 TAB PO DAILY 08/04/12 Digoxin (Digoxin) 250 Mcg Tablet, 250 MCG PO DAILY 08/04/12 Losartan Potassium (Cozaar) 50 Mg Tablet, 50 MG PO DAILY 08/04/12 Sertraline Hcl (Zoloft) 50 Mg Tablet, 50 MG PO DAILY 08/04/12 Warfarin Sodium (Coumadin) 5 Mg Tablet, 5 MG PO DAILY 08/04/12 Allergies: Coded Allergies: erythromycin base (Verified Allergy, Unknown, HIVES, 11/12/16) Family History Family History: unkown at this time Social History Smoking Status: Never smoker Substance Use Type: does not use Marital Status: Sexuality: male partner Housing: house Household Members: spouse Current Occupational Status: retired Advance Directives: Yes DPOA for Healthcare Only (DAUGHTER ALFONSO) Review of Systems All Other Systems All Other Systems: Reviewed (remainder of 10-point ROS Neg.) Comments Patient denies headache, denies any change in her vision, denies any fevers chilling or sweating, nausea neck or jaw pain, patient denies any chest pain, has heart palpitations which are chronic, patient denies any change in her bowel movements, denies any urinary symptoms, the patient denies swelling to her legs, the patient generally just felt weak over the past 1-2 weeks, with 2 episodes of falling, patient does have bruising. Abdominal wall from his recent fall which is slowly healing, but she does have some residual abdominal wall pain, otherwise a 10 point review systems is negative except for outlined above Physical Exam General General Nourishment: well nourished, well developed, apparent age, adult General Body Habitus: well groomed Vital Signs Vital Signs Date Time Temp Pulse Resp B/P Pulse Ox O2 Delivery O2 Flow Rate FiO2 11/12/16 20:32 99.9 82 22 178/74 95 Nasal Cannula 2.00 Height (Feet): 5 Height (Inches): 5.00 Telemetry Rhythm: Atrial Fibrillation Eyes Brief: FOUND: EOMI, NOT FOUND: PERRL, other, scleral icterus Comments very diminished with scattered rhonchi,no wheezing appreciated Cardiovascular (brief) Capillary Refill: <2 sec Comments irreg, irreg, nomurmur Abdomen (brief) Abdominal Brief: FOUND: BS normo active x4, soft, NOT FOUND: distended, tender Musculoskeletal (brief) Musculoskeletal Brief: NOT FOUND: deformity, extremities move equally, loss of motion, other, spasm, tenderness Integumentary (brief) Integumentary Brief: FOUND: dry, pink, warm Neurologic (brief) Comments neurologically intact Neurologic RN Documented GCS Eye Opening: Verbal: Motor: Total: Psychiatric (brief) FOUND: alert, attentive, normal affect, oriented Laboratory Laboratory Tests Test 11/12/16 18:50 11/12/16 18:54 11/12/16 21:07 Arterial Blood pH 7.388 Arterial Blood Partial Pressure CO2 46MMHG Arterial Blood pO2 at Patient Temp 76MMHG Arterial Blood HCO3 27MEQ/L Arterial Blood Total CO2 29MEQ/L Arterial Blood Oxygen Saturation 95.0% Arterial Blood Base Excess 2.0MMOL/L Oxygen Delivery Method (LAB) Nasal cannula,liters Blood Gas Oxygen Liter Flow 2 Blood Gas Oxygen Percent Given Blood Gas Vent Rate Blood Gas Tidal Volume ML White Blood Count 7.9T/MM3 Red Blood Count 3.96M/MM3 Hemoglobin 12.0GM/DL Hematocrit 37.2% Mean Corpuscular Volume 93.9UM3 Mean Corpuscular Hemoglobin 30.3UUG Mean Corpuscular Hemoglobin Concent 32.3GM/DL RDW Standard Deviation 46.1FL Platelet Count 119T/MM3 Mean Platelet Volume 10.9UM3 Immature Granulocyte % (Auto) % Neutrophils (%) (Auto) % Lymphocytes (%) (Auto) % Monocytes (%) (Auto) % Eosinophils (%) (Auto) % Basophils (%) (Auto) % Absolute Immature Granulocyte (auto T/MM3 Absolute Neutrophils (auto) T/MM3 Absolute Lymphocytes (auto) T/MM3 Absolute Monocytes (auto) T/MM3 Absolute Eosinophils (auto) T/MM3 Absolute Basophils (auto) T/MM3 Neutrophils % (Manual) 72.0% Band Neutrophils % 6.0% Lymphocytes % (Manual) 8.0% Monocytes % (Manual) 9.0% Eosinophils % (Manual) 4.0% Basophils % (Manual) 1.0% Absolute Neutrophils (Manual) 5.7T/MM3 Band Neutrophils # 0.5T/MM3 Lymphocytes # (Manual) 0.6T/MM3 Monocytes # (Manual) 0.7T/MM3 Eosinophils # (Manual) 0.3T/MM3 Basophils # (Manual) 0.1T/MM3 Red Cell Morphology Comment Normal Prothromb Time International Ratio 1.69 Activated Partial Thromboplast Time 63.0SEC D-Dimer < 150NG/ML Turbidity < 20 Sodium Level 145MEQ/L Potassium Level 4.6MEQ/L Chloride Level 105MEQ/L Carbon Dioxide Level 29MEQ/L Anion Gap 11MEQ/L Blood Urea Nitrogen 25.0MG/DL Creatinine 0.7MG/DL Glomerular Filtration Rate Calc 81 BUN/Creatinine Ratio 36RATIO Glucose Level 123MG/DL Calculated Osmolality 284MOSM/KG Calcium Level 9.4MG/DL Icterus Index < 2 Troponin I < 0.012ng/ml RY-[id number]-[id number] Natriuretic Peptide 1160PG/ML Chemistry Specimen Hemolysis < 15 Radiology CXR with no acute infiltrate. possible early right lower lobe Assessment & Plan Assessment 1. Community acquired pneumonia acute present on admission: Patient has allergies to erythromycin. Will cover with Levaquin, cultures have been ordered , adjust antibiotics as indicated, at that the chest x-ray does demonstrate what appears to be an early right lower lobe infiltrate. Sputum is definitely infected in appearance. 2. Hypoxia mild resolution: Not hypoxic respiratory failure. Secondary to #1. Well monitor while hospitalized. Should improve as infectious process improves 3. Hypertension chronic present on admission: Patient apparently had her labetalol dose decreased by her PCP recently. Currently patient is hypertensive. Well return back to her prior level of labetalol. 4. H her fibrillation chronic present on admission: Rate controlled, on digoxin , beta zahraa, Coumadin, INR is 1.7, will follow INR as patient will be started on quinolone, this should increase INR, 5. Dyslipidemia chronic present on admission continue statin 6. Dehydration acute present admission: Patients BUNs 25 creatinine 0.7 patient is having orthostatic events it sounds like. Magalie held Lasix. Gentle hydration. Reassess in the morning. Consider holding Lasix at least short- term. 7. DVT prophylaxis: Coumadin DVT Prophylaxis: Coumadin Code Status Full Code, unverified Hospital Course Summary Disclaimer The hospital course summary below is not to be considered part of the above Progress Note. OMARI CORONA MD 11/13/16 1244: Past Medical History Current Medications Home Meds Reported Medications Amox Tr/Potassium Clavulanate (Amox Tr-K Clv 875-125 mg Tab) 875 Mg Tablet, 1 TAB PO BID for 7 Days starting 11/12/16 11/12/16 Tramadol HCl (Tramadol HCl) 50 Mg Tablet, 50 MG PO TID Y for PAIN 11/12/16 Valacyclovir HCl (Valacyclovir) 500 Mg Tablet, 1000 MG PO TID for 10 Days starting 11/12/16 11/12/16 Labetalol HCl (Labetalol HCl) 200 Mg Tablet, 100 MG PO BID 11/12/16 Levothyroxine Sodium (Synthroid) 25 Mcg Tablet, 25 MCG PO DAILY 07/29/13 Furosemide (Furosemide) 40 Mg Tablet, 40 MG PO PRN 08/04/12 Multivitamins (Multivitamin) 1 Tab Tablet, 1 TAB PO DAILY 08/04/12 Digoxin (Digoxin) 250 Mcg Tablet, 250 MCG PO DAILY 08/04/12 Losartan Potassium (Cozaar) 50 Mg Tablet, 50 MG PO DAILY 08/04/12 Sertraline Hcl (Zoloft) 50 Mg Tablet, 50 MG PO DAILY 08/04/12 Warfarin Sodium (Coumadin) 5 Mg Tablet, 5 MG PO DAILY 08/04/12 Allergies: Coded Allergies: erythromycin base (Verified Allergy, Unknown, HIVES, 11/12/16) Assessment & Plan Assessment History and physical Chief complaint weakness, cough. History of present illness: 81-year-old female with shortness of air increasing over 3 days. Patient has had worsening weakness over the past 2 weeks, and hasn' t fact fallen twice due to the weakness. No loss of consciousness either time. She feels like she's had a fever intermittently the last 3 days, increasing sputum, more difficulty getting air. Was seen by her primary care provider yesterday morning and started on a new medication, , however symptoms worsen during the day she presented to the ED. Normally does not require oxygen, but did require 2 L nasal cannula while in the emergency department in order to keep sats greater than 92%. Past medical history: Breast cancer hypertension and atrial fibrillation. Surgical history: Cholecystectomy, lumpectomy, bilateral cataract surgery. Medications: Augmentin started yesterday morning, tramadol, valacyclovir, labetalol, levothyroxine, Lasix, multivitamin, digoxin, Cozaar, Zoloft, warfarin. Allergies NKDA Family history negative, Social history no tobacco use, no alcohol use, no drug usage. Review of systems: Review of 10 systems is negative except for those listed above. ROS above reviewed and I agree. Physical exam: Telemetry, and atrial fibrillation. HEENT within normal limits, pupils equal and reactive, extraocular movement intact. Cardiac irregularly irregular, lungs mild wheezing and crackles bilateral. Abdomen positive bowel sounds nontender no masses. Extremities 1+ pitting edema bilateral lower extremities. Laboratory: White count 7.9 hematocrit 37.2, platelets 119. Patient is 72% neutrophils. D-dimer less than 150 troponin negative, pro BNP 1160. Imaging: Acute changes noted on chest x-ray. Assessment and plan #1. Acquired pneumonia. Patient is appropriate for pneumonia diagnosis despite essentially negative chest x-ray at this time. She was initially started on Rocephin and Zithromax through the emergency department, but has an erythromycin allergy, therefore we will discontinue the Zithromax, and Rocephin. Start with Levaquin which was ordered overnight. Sputum culture and blood cultures obtained. #2 Dehydration, mild. IV fluids given, Lasix held. #3 COPD. Acute reactive airway disease exacerbation. Patient given nebulized treatments every 6 hours scheduled, Solu-Medrol initially given 125 mg IV, will continue with 62.5 mg IV every 6 hours. 4 atrial fibrillation. Rate controlled meds continue his current. #5 hypertension labetalol dose continued as increased by PCP. #60 and also maintenance. DVT prophylaxis, patient is on Coumadin SCDs also ordered. Current outpatient medications continued. GERTRUDIS Escobedo M.D., MD Nov 12, 2016 21:38 OMARI CORONA MD Nov 13, 2016 12:44
--- NOTE | 2016-11-12 22:00 | NUR ---
Dr. Dr. Coffman visits w/ pt. per telemed screen. Pt. unsure of allergy, old charts indicate erythromycin. Will change antibiotic to Levaquin
[2016-11-12] MEDS: LABETALOL 100 MG TABLET PO SCH (22:02)
[2016-11-13] VITALS (13 sets, daily range): BP systolic 152–178; BP diastolic 76–105; PULSE 0–89; RESP 18–22; TEMP 96–99.6; O2SAT 94–99
[2016-11-13] MEDS: ALBUTEROL INH.SOLN. 2.5mg/3ml (0.083%) Neb. AEROSOL PRN (04:37)
--- NOTE | 2016-11-13 04:44 | NUR ---
elim assisted to BR, denies dizziness as up. Inc. of urine, also voids. Spec. to lab
[2016-11-13 05:16] LABS: HCT - HEMATOCRIT 36.9 % (36-46); HGB - HEMOGLOBIN 11.9 GM/DL (12-16); MEAN CORPUSCULAR HGB 30.3 UUG (26-34); MEAN CORPUSCULAR HGB CONC(MCHC 32.2 GM/DL (31-37); MEAN CORPUSCULAR VOLUME 93.9 UM3 (80-100); MEAN PLATELET VOLUME 11.4 UM3 (9.4-12.4); RED BLOOD COUNT 3.93 M/MM3 (4.00-5.20); WBC - WHITE BLOOD COUNT 5.6 T/MM3 (4.5-11.0)
[2016-11-13 05:30] LABS: ANION GAP 11 MEQ/L (5-15); BUN/CREATININE RATIO 30 RATIO (6-26); CALCIUM 9.2 MG/DL (8.4-10.2); CHLORIDE 105 MEQ/L (98-107); CO2 - CARBON DIOXIDE 27 MEQ/L (22-30); CREATININE 0.7 MG/DL (0.7-1.2); GLOMERULAR FILTRATION RATE 81; GLUCOSE 154 MG/DL (65-110); POTASSIUM 4.2 MEQ/L (3.6-5); SODIUM 143 MEQ/L (134-144)
[2016-11-13] MEDS: NORMAL SALINE 1,000 ML IV SCH ×2 (05:32→14:23)
--- NOTE | 2016-11-13 05:37 | NUR ---
rest dozes off and on, HOB elevated. O2 sats mid 90s on 2L/nc. Audible wheezing noted after breathing tx. Gibbons sputum, spec. to lab
[2016-11-13 06:19] LABS: BAND NEUTROPHILS # 0.2 T/MM3; LYMPHOCYTES # (MANUAL) 0.3 T/MM3 (1-4.8); TOTAL CELLS COUNTED 100 %
--- NOTE | 2016-11-13 08:45 | DI ---
INDICATION: ITS.REASON: dyspnea PROCEDURE: CHEST 2-VIEWS UPRIGHT (PA \T\ LAT) Encounter: Initial Comparison: July 27, 2015 Findings: The lungs are stable in appearance without new focal airspace consolidation. There is no pleural effusion or pneumothorax. The heart size, pulmonary vascularity and mediastinal contours are unchanged. IMPRESSION: Stable appearance of the chest without acute cardiopulmonary disease. .
[2016-11-13] MEDS ORDERED: LEVOTHYROXINE 25 MCG TABLET PO SCH (09:00)
[2016-11-13] MEDS ORDERED: ALBUTEROL/IPRATROPIUM INHAL. 2.5mg-0.5mg/3ml Neb. AEROSOL SCH (09:00)
[2016-11-13] MEDS: BUDESONIDE INH.SOLN. 0.5mg/2ml NEB AEROSOL SCH ×2 (09:22→20:56)
[2016-11-13] MEDS: ALBUTEROL/IPRATROPIUM INHAL. 2.5mg-0.5mg/3ml Neb. AEROSOL SCH ×4 (09:27→20:55)
[2016-11-13] MEDS: LABETALOL 100 MG TABLET PO SCH ×2 (09:49→21:26)
[2016-11-13] MEDS: DIGOXIN 250 MCG TABLET PO SCH (09:49)
[2016-11-13 10:39] LABS: INR 2.29 (0.76-1.04)
--- NOTE | 2016-11-13 10:44 | NUR ---
WARFARIN CONSULT S: 81 y/o F on warfarin for afib. Home dose is 5 mg PO daily. Goal INR 2-3. O: Date INR Warfarin Dose 11/12 1.69 Home dose (5 mg) taken prior to admit per home med list 11/13 2.29 PLAN: 2 mg A/P: INR therapeutic; significant jump between yesterday evening and this morning, likely due to drug-drug interaction between warfarin and levofloxacin (increases INR). Will order warfarin 2 mg PO x 1 today. Will continue to monitor & make adjustments accordingly. Thank you for the consult. Julissa Vaughan, PharmD, BCPS
[2016-11-13] MEDS ORDERED: WARFARIN 2 MG TABLET PO ONE (12:00)
[2016-11-13] MEDS ORDERED: WARFARIN 5 MG TABLET PO SCH (12:00)
--- NOTE | 2016-11-13 12:17 | NUR ---
CM CM IN TO VISIT PT AND FAMILY. CM EXPLAINED ROLE. CM PROVIDED CONTACT INFORMATION. PT DENIES HOME NEEDS. PT AND FAMILY AWARE TO CALL SHOULD NEEDS ARISE.
--- NOTE | 2016-11-13 19:15 | NUR ---
shift summary Incont of urine has stress incont evan with coughing. tele is afib cvr. has a harse productive cough.gets up with 1 assist.
[2016-11-13] MEDS: LEVOFLOXACIN 750 mg IVPB 750 MG in D5W 150 ML IV SCH (21:22)
[2016-11-14] VITALS (14 sets, daily range): BP systolic 140–208; BP diastolic 77–120; PULSE 77–92; RESP 18–24; TEMP 96.1–98.9; O2SAT 91–97
[2016-11-14] MEDS: NORMAL SALINE 1,000 ML IV SCH ×4 (01:27→21:10)
[2016-11-14] MEDS: ALBUTEROL INH.SOLN. 2.5mg/3ml (0.083%) Neb. AEROSOL PRN (01:39)
--- NOTE | 2016-11-14 03:41 | NUR ---
HIGH BLOOD PRESSURE: TOOK PT'S BLOOD PRESSURE FOR HER Q4HR VITALS. BP 202/104. SENT TIGER TEXT, REC'D CALL BACK FROM DR. KHOURY. DR. KHOURY SAID TO GIVE PT NORVASC NOW AND RECHECK BLOOD PRESSURE IN 1 HR. IF OVER 190 SYSTOLIC, GIVE PRN HYDRALZALINE. WILL CONTINUE TO MONITOR.
[2016-11-14] MEDS ORDERED: AMLODIPINE 5 MG TABLET PO ONE (03:45)
[2016-11-14 05:09] LABS: HGB - HEMOGLOBIN 11.8 GM/DL (12-16); MEAN CORPUSCULAR HGB 30.2 UUG (26-34); MEAN CORPUSCULAR HGB CONC(MCHC 31.9 GM/DL (31-37); MEAN CORPUSCULAR VOLUME 94.6 UM3 (80-100); MEAN PLATELET VOLUME 11.2 UM3 (9.4-12.4); RED BLOOD COUNT 3.91 M/MM3 (4.00-5.20); WBC - WHITE BLOOD COUNT 8.8 T/MM3 (4.5-11.0)
[2016-11-14 05:17] LABS: INR 2.75 (0.76-1.04)
--- NOTE | 2016-11-14 05:22 | NUR ---
RETOOK PT'S BLOOD PRESSURE AN HOUR LATER (AFTER ADMINISTRATION OF NORVASC), BP 208/120. ADMINISTERED APRESOLINE 10 MG PER EMAR. WILL CONTINUE TO MONITOR.
[2016-11-14 05:26] LABS: ANION GAP 15 MEQ/L (5-15); BUN/CREATININE RATIO 30 RATIO (6-26); CALCIUM 9.1 MG/DL (8.4-10.2); CHLORIDE 107 MEQ/L (98-107); CO2 - CARBON DIOXIDE 24 MEQ/L (22-30); CREATININE 0.7 MG/DL (0.7-1.2); GLOMERULAR FILTRATION RATE 81; GLUCOSE 157 MG/DL (65-110); POTASSIUM 4.2 MEQ/L (3.6-5); SODIUM 146 MEQ/L (134-144)
[2016-11-14] MEDS: LEVOTHYROXINE 25 MCG TABLET PO SCH (05:47)
--- NOTE | 2016-11-14 06:20 | NUR ---
BLOOD PRESSURE: RETOOK PT'S BLOOD PRESSURE AN HOUR LATER (AFTER ADMINISTRATION OF NORVASC), BP 178/101. WILL CONTINUE TO MONITOR. PASSED INFORMATION ON TO DAY SHIFT RN.
[2016-11-14 06:36] LABS: BAND NEUTROPHILS # 0.1 T/MM3; LYMPHOCYTES # (MANUAL) 0.4 T/MM3 (1-4.8); MONOCYTES # (MANUAL) 0.2 T/MM3 (0-0.8); NEUTROPHILS #(MANUAL)-ABSOLUTE 8.2 T/MM3 (1.8-7.7); TOTAL CELLS COUNTED 100 %
--- NOTE | 2016-11-14 07:58 | NUR ---
SHIFT REPORT: PT IS A&OX3, FRIENDLY AND COOPERATIVE, BUT CAN BE FORGETFUL AT TIMES. BLOOD PRESSURE EXTREMELY HIGH (SEE PREVIOUS NURSE NOTES). AUDIBLE WHEEZING - RESPIRATORY CALLED; PT STATED THAT THE BREATHING TREATMENT REALLY HELPED HER. TELEMETRY ON FOR PULSE OX. PT IS ON 2L OXYGEN, NC. PT DENIES CHEST PAIN. FLUIDS RUNNING. SCD'S WORN FOR A FEW HOURS, BUT PT WANTED THEM OFF. CALL LIGHT WITHIN REACH, BED ALARM ON.
[2016-11-14] MEDS: LABETALOL 100 MG TABLET PO SCH ×2 (08:11→21:08)
[2016-11-14] MEDS: AMLODIPINE 5 MG TABLET PO SCH (08:11)
[2016-11-14] MEDS: DIGOXIN 250 MCG TABLET PO SCH (08:11)
[2016-11-14] MEDS: ALBUTEROL/IPRATROPIUM INHAL. 2.5mg-0.5mg/3ml Neb. AEROSOL SCH ×4 (08:12→19:43)
[2016-11-14] MEDS: BUDESONIDE INH.SOLN. 0.5mg/2ml NEB AEROSOL SCH (08:13)
--- NOTE | 2016-11-14 10:05 | NUR ---
WARFARIN CONSULT S: 81 y/o F on warfarin for afib. Home dose is 5 mg PO daily. Goal INR 2-3. O: Date INR Warfarin Dose 11/12 1.69 Home dose (5 mg) taken prior to admit per home med list 11/13 2.29 2 mg 11/14 2.75 Plan: 1.5 mg A/P: INR therapeutic; significant jump between yesterday evening and this morning, likely due to drug-drug interaction between warfarin and levofloxacin (increases INR). I will order warfarin 1.5 mg PO x 1 today. The Pharmacy will continue to monitor & make adjustments accordingly. Thank you for the consult, Renan Mello mirtha.
[2016-11-14 12:00] LABS: BLOOD, URINE TRACE-LYSED (NEGATIVE); COLOR,URINE YELLOW (YELLOW); LEUKOCYTE ESTERASE ,URINE NEGATIVE (NEGATIVE); NITRITE,URINE NEGATIVE (NEGATIVE); UROBILINOGEN,URINE 0.2 EU/DL (NORMAL)
[2016-11-14] MEDS ORDERED: WARFARIN 3 MG TABLET PO SCH (12:00)
[2016-11-14 12:10] LABS: BACTERIA,URINE TRACE (NEGATIVE); RBC,URINE NONE SEEN /HPF (0-3); SQUAMOUS EPITHELIAL CELL,UR 0-5; WBC,URINE NONE SEEN /HPF (0-5)
[2016-11-14 12:11] LABS: MUCUS,URINE PRESENT
[2016-11-14] MEDS ORDERED: SERTRALINE 50 MG TABLET PO ONE (16:00)
--- NOTE | 2016-11-14 18:04 | PNPDOC ---
Subjective Date DATE: 11/14/16 TIME: 17:44 Subjective Patient resting comfortably today, feels like breathing is improving. She has been up out of bed, did rapidly become short of breath. Still requiring oxygen supplementation. Does not feel like she is ready to go home tomorrow. Objective Vital Signs Vital signs Vital Signs Date Time Temp Pulse Resp B/P Pulse Ox O2 Delivery O2 Flow Rate FiO2 11/14/16 16:26 88 11/14/16 16:26 97.3 21 185/90 91 Nasal Cannula 0.50 Telemetry Rhythm: Atrial Fibrillation Height (Feet): 5 Height (Inches): 5.00 Weight (Kilograms): 85.500 General General Appearance: Alert, Orientated x 3 Respiratory (Brief) Respiratory: FOUND: rales, wheezes Comments Crackles and wheezes heard bilateral, improved from yesterday. Cardiovascular (Brief) Comments Irregularly irregular rate and rhythm. Abdomen (Brief) Abdominal: FOUND: BS normo active x4, soft, NOT FOUND: tender Extremities (Brief) Extremity : Comments No clubbing cyanosis or edema noted Musculoskeletal (Brief) Comments Patient has appropriate strength, full range of motion of all extremities. Neurologic (Brief) Neurological: FOUND: cranial 2-12 intact, motor, sensory Laboratory Laboratory Laboratory Tests 11/12/16 18:54 11/13/16 04:13 11/14/16 04:04 Laboratory Tests 11/12/16 18:54 11/13/16 04:13 11/14/16 04:04 Microbiology Microbiology Microbiology Date/Time Source Procedure Growth Status 11/12/16 18:54 Peripheral/Iv Start Blood Culture - Preliminary NO GROWTH AFTER 24 HOURS Resulted 11/12/16 18:53 Peripheral/Iv Start Blood Culture - Preliminary NO GROWTH AFTER 24 HOURS Resulted 11/13/16 04:31 Sputum Expectorated Sputum Gram Stain - Final Resulted 11/13/16 04:31 Sputum Expectorated Sputum Sputum Culture - Preliminary CULTURE INITIATED - RESULTS PENDING Resulted 11/13/16 04:31 Urine Legionella Urinary Antigen - Final Complete 11/13/16 04:31 Urine Streptococcus pneumoniae Antigen (M - Final Complete Assessment & Plan Problems: (1) Reactive airway disease with acute exacerbation (2) Atrial fibrillation, chronic Status: Acute (3) CAP (community acquired pneumonia) Status: Acute Assessment History and physical Chief complaint weakness, cough. History of present illness: 81-year-old female with shortness of air increasing over 3 days. Patient has had worsening weakness over the past 2 weeks, and hasn' t fact fallen twice due to the weakness. No loss of consciousness either time. She feels like she's had a fever intermittently the last 3 days, increasing sputum, more difficulty getting air. Was seen by her primary care provider yesterday morning and started on a new medication, , however symptoms worsen during the day she presented to the ED. Normally does not require oxygen, but did require 2 L nasal cannula while in the emergency department in order to keep sats greater than 92%. Past medical history: Breast cancer hypertension and atrial fibrillation. Surgical history: Cholecystectomy, lumpectomy, bilateral cataract surgery. Medications: Augmentin started yesterday morning, tramadol, valacyclovir, labetalol, levothyroxine, Lasix, multivitamin, digoxin, Cozaar, Zoloft, warfarin. Allergies NKDA Family history negative, Social history no tobacco use, no alcohol use, no drug usage. Review of systems: Review of 10 systems is negative except for those listed above. ROS above reviewed and I agree. Physical exam: Telemetry, and atrial fibrillation. HEENT within normal limits, pupils equal and reactive, extraocular movement intact. Cardiac irregularly irregular, lungs mild wheezing and crackles bilateral. Abdomen positive bowel sounds nontender no masses. Extremities 1+ pitting edema bilateral lower extremities. Laboratory: White count 7.9 hematocrit 37.2, platelets 119. Patient is 72% neutrophils. D-dimer less than 150 troponin negative, pro BNP 1160. Imaging: Acute changes noted on chest x-ray. Assessment and plan #1. Acquired pneumonia. Patient is appropriate for pneumonia diagnosis despite essentially negative chest x-ray at this time. She was initially started on Rocephin and Zithromax through the emergency department, but has an erythromycin allergy, therefore we will discontinue the Zithromax, and Rocephin. Start with Levaquin which was ordered overnight. Sputum culture and blood cultures obtained. #2 Dehydration, mild. IV fluids given, Lasix held. #3 COPD. Acute reactive airway disease exacerbation. Patient given nebulized treatments every 6 hours scheduled, Solu-Medrol initially given 125 mg IV, will continue with 62.5 mg IV every 6 hours. 4 atrial fibrillation. Rate controlled meds continue his current. #5 hypertension labetalol dose continued as increased by PCP. #60 and also maintenance. DVT prophylaxis, patient is on Coumadin SCDs also ordered. Current outpatient medications continued. Gabino Bustamante M.D. Plan/Intensity of Service #1 reactive airway disease with acute exacerbation. Solu-Medrol decreased from 62 mg every 6 hours to 30 mg every 6 hours IV. DuoNeb and Pulmicort as scheduled. Patient has shown improvement. Reevaluate tomorrow. #2 community-acquired pneumonia. Continue Levaquin due to erythromycin allergy. CBC CMP chest x-ray in a.m. #3 atrial fibrillation. Stable, INR elevating due to Levaquin. Pharmacy consulted to manage Coumadin dosing. #4 discharge planning. Patient may be able to discharge tomorrow if stable, most likely Thursday discharge. #5 general maintenance. Other meds continued is current. Gabino Bustamante M.D. Code Status Full Code, unverified Hospital Course Summary Disclaimer The hospital course summary below is not to be considered part of the above Progress Note. Hospital Course Summary #1 reactive airway disease with acute exacerbation. Solu-Medrol decreased from 62 mg every 6 hours to 30 mg every 6 hours IV. DuoNeb and Pulmicort as scheduled. Patient has shown improvement. Reevaluate tomorrow. #2 community-acquired pneumonia. Continue Levaquin due to erythromycin allergy. CBC CMP chest x-ray in a.m. #3 atrial fibrillation. Stable, INR elevating due to Levaquin. Pharmacy consulted to manage Coumadin dosing. #4 discharge planning. Patient may be able to discharge tomorrow if stable, most likely Thursday discharge. #5 general maintenance. Other meds continued is current. GABINO Bean M.D., MD Nov 14, 2016 17:48
[2016-11-14] MEDS ORDERED: ZOLPIDEM 5 MG TABLET PO PRN (18:15)
--- NOTE | 2016-11-14 18:16 | NUR ---
Shift summary pt is alert and oriented x3. bp has been high as charted. pt denied pain, nausea/vomiting or abdominal pain. pt gets up with x1 assist. bp medications were given as schedule. pt requires O2 to maintain tissue perfusion (pt reports soa most of the time) pt as for respiratory therapy some times after having a little activity such as going to the bathroom. pt cooperate with treatments and care. pt was confuse at one point in the afternoon but she is doing better at this time.
--- NOTE | 2016-11-14 18:23 | NUR ---
SHIFT PT HAS BEEN PLEASANT AND COOPERATIVE THIS SHIFT. PT DOES REPORT "HEARING VOICES THROUGH THE PHONE" WHICH IS CRADLED AND UNPLUGGED AT THIS TIME. PT DENIES PAIN, N/V BUT REPORTS SOA. PT IS ON 2L O2 NC. PT HAS EATEN 100% OF MEALS AND HAS HAD FRIENDS AT BEDSIDE. NO OTHER CHANGES SINCE PREVIOUS SHIFT. ALARMS IN USE AND CALL LIGHT WITH IN REACH.
[2016-11-14] MEDS: LEVOFLOXACIN 750 mg IVPB 750 MG in D5W 150 ML IV SCH (21:08)
[2016-11-14] MEDS: MethylPREDNISolone SOD SUCC 40mg/1ml IV SCH (21:10)
[2016-11-15] VITALS (10 sets, daily range): BP systolic 152–204; BP diastolic 84–113; PULSE 78–96; RESP 20–24; TEMP 95.8–98.4; O2SAT 94–98
[2016-11-15] MEDS: MethylPREDNISolone SOD SUCC 40mg/1ml IV SCH ×4 (03:22→21:43)
--- NOTE | 2016-11-15 04:57 | NUR ---
summary patient is a&o x3, no hallucinations noted this shift. currently on 1l nc, which was down to .5 most of the shift. patient c/o headache, bp checked 204/107, prn hydralazine given as charted. recheck was 168 systolic. no new concerns.
[2016-11-15] MEDS: LEVOTHYROXINE 25 MCG TABLET PO SCH (05:40)
[2016-11-15 07:00] LABS: HCT - HEMATOCRIT 37.3 % (36-46); HGB - HEMOGLOBIN 11.9 GM/DL (12-16); MEAN CORPUSCULAR HGB 30.3 UUG (26-34); MEAN CORPUSCULAR HGB CONC(MCHC 31.9 GM/DL (31-37); MEAN CORPUSCULAR VOLUME 94.9 UM3 (80-100); MEAN PLATELET VOLUME 10.8 UM3 (9.4-12.4); RED BLOOD COUNT 3.93 M/MM3 (4.00-5.20); WBC - WHITE BLOOD COUNT 11.7 T/MM3 (4.5-11.0)
[2016-11-15 07:05] LABS: ALBUMIN 3.8 G/DL (3.5-5.0); ALBUMIN/GLOBULIN RATIO 1.4 RATIO (1.1-2.2); ALKALINE PHOSPHATASE 69 U/L (38-126); ALT (SGPT) 63 U/L (9-52); ANION GAP 15 MEQ/L (5-15); AST (SGOT) 46 U/L (14-36); BUN/CREATININE RATIO 45 RATIO (6-26); CALCIUM 8.9 MG/DL (8.4-10.2); CHLORIDE 107 MEQ/L (98-107); CO2 - CARBON DIOXIDE 24 MEQ/L (22-30); CREATININE 0.6 MG/DL (0.7-1.2); GLOMERULAR FILTRATION RATE 96; GLUCOSE 140 MG/DL (65-110); POTASSIUM 3.9 MEQ/L (3.6-5); SODIUM 146 MEQ/L (134-144); TOTAL PROTEIN 6.5 G/DL (6.3-8.2)
[2016-11-15 07:12] LABS: INR 2.63 (0.76-1.04); PROTHROMBIN TIME 28.7 SEC (9.31-12.49)
[2016-11-15 07:17] LABS: BAND NEUTROPHILS # 0.2 T/MM3; LYMPHOCYTES # (MANUAL) 0.4 T/MM3 (1-4.8); MONOCYTES # (MANUAL) 0.4 T/MM3 (0-0.8); NEUTROPHILS #(MANUAL)-ABSOLUTE 10.8 T/MM3 (1.8-7.7); TOTAL CELLS COUNTED 100 %
[2016-11-15] MEDS: NORMAL SALINE 1,000 ML IV SCH (07:49)
[2016-11-15] MEDS: AMLODIPINE 5 MG TABLET PO SCH (07:50)
[2016-11-15] MEDS: SERTRALINE 50 MG TABLET PO SCH (07:50)
[2016-11-15] MEDS: LABETALOL 100 MG TABLET PO SCH ×2 (07:50→21:43)
[2016-11-15] MEDS: DIGOXIN 250 MCG TABLET PO SCH (07:50)
[2016-11-15] MEDS: ALBUTEROL/IPRATROPIUM INHAL. 2.5mg-0.5mg/3ml Neb. AEROSOL SCH ×4 (07:55→20:19)
--- NOTE | 2016-11-15 08:45 | NUR ---
COUMADIN CONSULT (Recurring): Today's INR = 2.63. Will give Warfarin 1.5 mg today. Will continue to monitor & make adjustments accordingly. Thank you.
[2016-11-15] MEDS ORDERED: MILK OF MAGNESIA 30 ML SUSP PO PRN (10:00)
[2016-11-15] MEDS ORDERED: PRN ORDERS MC (10:00)
[2016-11-15] MEDS ORDERED: ACETAMINOPHEN 325 MG TABLET PO PRN (10:00)
[2016-11-15] MEDS ORDERED: WARFARIN 1 MG TABLET PO SCH (12:00)
[2016-11-15] MEDS ORDERED: FUROSEMIDE 40 MG/4 ML INJECTION IV ONE (12:00)
[2016-11-15] MEDS ORDERED: POTASSIUM CHLORIDE 20 MEQ TABLET PO ONE (12:00)
--- NOTE | 2016-11-15 12:00 | PNPDOC ---
NY FERRER APRN 11/15/16 1154: Subjective Date DATE: 11/15/16 TIME: 11:51 Subjective Mary is seen today in follow up. Reports she is feeling somewhat better, but still has a harsh, nonproductive cough. She remains SOA, wheezy. Denies abdominal pain. Reports that she is up about 5 pounds since admission. BP is very high and she has been suffering a RAMACHANDRAN. That has gotten better today, states she takes her meds a bit differently at home. Some chronic vision changes, no acute. Chart is reviewed for collateral information. Objective Vital Signs Vital signs Vital Signs Date Time Temp Pulse Resp B/P Pulse Ox O2 Delivery O2 Flow Rate FiO2 11/15/16 11:42 20 11/15/16 11:42 72 11/15/16 08:46 96.4 164/91 94 Nasal Cannula 1.00 Telemetry Rhythm: Atrial Fibrillation Height (Feet): 5 Height (Inches): 5.00 Weight (Kilograms): 87.900 General General Appearance: Alert, Orientated x 3, Cooperative, No Acute Distress Eyes (Brief) Eyes: FOUND: EOMI, PERRL, NOT FOUND: scleral icterus Neck (Brief) Neck: FOUND: midline, NOT FOUND: JVD, nuchal rigidity, spasm Respiratory (Brief) Respiratory: FOUND: equal bilaterally, rales, symmetrical, wheezes Comments Coarse, wheezy bilaterally. Still SOA at rest. Dyspneic with speech. Cardiovascular (Brief) Cardiac: FOUND: murmur, pedal edema, regular rate, NOT FOUND: regular rhythm Abdomen (Brief) Abdominal: FOUND: BS normo active x4, soft, NOT FOUND: distended, tender Comments Obese. Extremities (Brief) Extremity : Side: Bilateral Extremity Finding: FOUND: edema Musculoskeletal (Brief) Musculoskeletal: NOT FOUND: loss of motion, spasm, tenderness Psychiatric (Brief) Psychiatric: FOUND: attentive, normal affect, oriented Laboratory Laboratory Laboratory Tests 11/14/16 04:04 11/15/16 06:44 Laboratory Tests 11/14/16 04:04 11/15/16 06:44 Microbiology Microbiology Microbiology Date/Time Source Procedure Growth Status 11/12/16 18:54 Peripheral/Iv Start Blood Culture - Preliminary NO GROWTH AFTER 48 HOURS Resulted 11/12/16 18:53 Peripheral/Iv Start Blood Culture - Preliminary NO GROWTH AFTER 48 HOURS Resulted 11/13/16 04:31 Sputum Expectorated Sputum Gram Stain - Final Resulted 11/13/16 04:31 Sputum Culture - Preliminary Normal Respiratory Sruthi Resulted 11/13/16 04:31 Urine Legionella Urinary Antigen - Final Complete 11/13/16 04:31 Urine Streptococcus pneumoniae Antigen (M - Final Complete Radiology CXR reviewed. Assessment & Plan Problems: (1) Reactive airway disease with acute exacerbation Status: Acute (2) Human metapneumovirus (hMPV) pneumonia Status: Acute (3) Atrial fibrillation, chronic Status: Chronic (4) CAP (community acquired pneumonia) Status: Acute (5) Acute respiratory failure Status: Acute Qualifiers: Respiratory failure complication: hypoxia Qualified Codes: J96.01 - Acute respiratory failure with hypoxia (6) Fluid overload Status: Acute Qualifiers: Hypervolemia type: other Qualified Codes: E87.79 - Other fluid overload (7) Uncontrolled hypertension Status: Acute Assessment 11/15/16- *Pulm- Continues to be wheezy, SOA. Suspect resp and fluid overload as contributing factors. Continue Levaquin, Steroids. Duoneb, Pulmicort. Add Acapella valve. O2 PRN to keep sats elevated. Repeat PA & Lat CXR in AM. *CV- AFib. Suspect some HF. No echo on file- hx of pericardial effusion. Get echo. Add Lasix now and KCL. Her lab looks intravascularly dry, but she appears centrally overloaded. Restart home Lasix when indicated. Repeat labs in AM *Uncontrolled HTN- Remains quite elevated. Continue Norvasc, Metoprolol Resume Cozaar- SCr is ok. Diurese today- restart Lasix in AM if indicated. PRN Hydralazine IV. *AFib- Tele. Dig. beta-zahraa. Warfarin per pharmacy. Still fairly ill- continue inpatient status. DVT Prophylaxis: Coumadin Code Status Full Code, unverified Hospital Course Summary Disclaimer The hospital course summary below is not to be considered part of the above Progress Note. Hospital Course Summary #1 reactive airway disease with acute exacerbation. Solu-Medrol decreased from 62 mg every 6 hours to 30 mg every 6 hours IV. DuoNeb and Pulmicort as scheduled. Patient has shown improvement. Reevaluate tomorrow. #2 community-acquired pneumonia. Continue Levaquin due to erythromycin allergy. CBC CMP chest x-ray in a.m. #3 atrial fibrillation. Stable, INR elevating due to Levaquin. Pharmacy consulted to manage Coumadin dosing. #4 discharge planning. Patient may be able to discharge tomorrow if stable, most likely Thursday discharge. #5 general maintenance. Other meds continued is current. Gabino Bustamante M.D. 11/15/16- *Pulm- Continues to be wheezy, SOA. Suspect resp and fluid overload as contributing factors. Continue Levaquin, Steroids. Duoneb, Pulmicort. Add Acapella valve. O2 PRN to keep sats elevated. Repeat PA & Lat CXR in AM. *CV- AFib. Suspect some HF. No echo on file- hx of pericardial effusion. Get echo. Add Lasix now and KCL. Her lab looks intravascularly dry, but she appears centrally overloaded. Restart home Lasix when indicated. Repeat labs in AM *Uncontrolled HTN- Remains quite elevated. Continue Norvasc, Metoprolol Resume Cozaar- SCr is ok. Diurese today- restart Lasix in AM if indicated. PRN Hydralazine IV. *AFib- Tele. Dig. beta-zahraa. Warfarin per pharmacy. Still fairly ill- continue inpatient status. JUSTIN HERZOG MD 11/15/16 190: Assessment & Plan Problems: (1) Reactive airway disease with acute exacerbation Status: Acute (2) Atrial fibrillation, chronic Status: Chronic (3) CAP (community acquired pneumonia) Status: Acute (4) Acute respiratory failure Status: Acute Qualifiers: Respiratory failure complication: hypoxia Qualified Codes: J96.01 - Acute respiratory failure with hypoxia (5) Fluid overload Status: Acute Qualifiers: Hypervolemia type: other Qualified Codes: E87.79 - Other fluid overload (6) Uncontrolled hypertension Status: Acute Assessment 11/15/2016-I reviewed this chart, the patient history, and the [employer]'s/PA's documented findings as above. We discussed and formulated the assessment and plan as above with the additions below.-Dr. Herzog The patient states she is feeling much better than when she came in. She states she is breathing better. She denies any lightheadedness. Her shortness of breath and cough have improved. She denies any pain now but states she had a headache earlier today. She is also had some generalized achiness in her arms and abdomen after falling prior to admission. She did not hit her head. She did not lose consciousness. She states she did fall twice prior to admission. She also admits to some occasional difficulties with swallowing. She is eating and drinking okay. She is urinating more after receiving Lasix earlier today. She has had no nausea, vomiting or diarrhea. She does feel constipated and took a laxative earlier today. She denies smoking and denies history of asthma or COPD. She states that approximately 10 years ago she was hospitalized for a month in [place] with a respiratory illness and was very ill and has had some intermittent problems with pneumonia and her breathing since that time. On exam she is alert and oriented and in no acute distress. She has audible wheezing and rhonchi. HEENT reveals sclerae to be anicteric and oropharynx is moist. Neck is supple. Chest reveals some mild bilateral wheezing and rhonchi. Cardiovascular reveals an irregularly irregular rhythm with a well-controlled rate. Abdomen is soft and nontender. Extremities are free of edema. Lab work was reviewed. The patient does have parainfluenza virus. Regarding reactive airways disease with acute exacerbation, continue breathing treatments, change to oral steroids, continue oxygen as needed, agree with chest x-ray tomorrow. Agree with continued Levaquin. Regarding A. fib, rate is controlled. Continue Coumadin. Regarding possible dysphagia, will consult speech therapy Regarding falls prior to admission, will consult physical therapy. May need to repeat Lasix again tomorrow. Agree with discontinuation of IV fluids. Continue with current treatment and possible discharge on Thursday if she continues to improve. [place] FERRER [employer] Nov 15, 2016 11:54 JUSTIN HERZOG MD Nov 15, 2016 19:01
[2016-11-15] MEDS: LOSARTAN 50 MG TABLET PO SCH (12:38)
--- NOTE | 2016-11-15 16:20 | CONSPD ---
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 After she got home. she had continued shortness of breath with a cough productive of green sputum. She states in general she has not felt well for the past 2 weeks. She fell 2 over the past week. Non-syncopal. Her evaluation in our emergency department demonstrated possibility of early right lower lobe infiltrate and she was mildly hypoxic requiring 2 L of oxygen. Shw was admitted for further treatment of community-acquired pneumonia and mild hypoxia. Dr Butler is consulted to read her echocardiogram and evaluate her SOA. She reports her logistics intern Dr. Pulido saw her 3-4 weeks ago and she got the results of a recent echo which was done to evaluate her Aortic Stenosis. She reports that the echo was "about the same." Past Medical History Past Medical History Metabolic: cancer, hypercholesterolemia, hypertension, hypothyroidism ENMT: allergies Cardiac: A-fib Hematologic: DVT Psychological: depression Surgical History General: gallbladder, other Current Medications Home Meds Active Scripts Labetalol HCl (Labetalol HCl) 200 Mg Tablet, 1 TAB PO BID for HYPERTENSION, #60 TAB Prov:ARNULFO VEGA MD 11/18/16 Diphenhydramine HCl (Benadryl) 25 Mg Capsule, 1 CAP PO HS Y for sleep/allergies , #30 CAP Prov:ARNULFO VEGA MD 11/18/16 Prednisone (Prednisone) 20 Mg Tablet, 20 MG PO WB, #5 TAB Take 1 tablet, by mouth, daily with breakfast. Prov:ARNULFO VEGA MD 11/18/16 Sodium Chloride (Deep Sea) 450 [place]/45 Ml [place], 2 SPRAY EA NOSTRIL QID for NASAL CONGESTION, #1 BOTTLE Prov:ARNULFO VEGA MD 11/18/16 Guaifenesin/Dextromethorphan (Mucinex Dm ER 600-30 mg Tablet) 1 Each Tab.er.12h , 1 TAB PO Q12HR Y for COUGH/CONGESTION, #30 TAB Prov:ARNULFO VEGA MD 11/18/16 Amlodipine Besylate (Amlodipine Besylate) 5 Mg Tablet, 5 MG PO DAILY for HYPERTENSION, #30 TAB Prov:ARNULFO VEGA MD 11/18/16 Reported Medications Tramadol HCl (Tramadol HCl) 50 Mg Tablet, 50 MG PO TID Y for PAIN 11/12/16 Levothyroxine Sodium (Synthroid) 25 Mcg Tablet, 25 MCG PO DAILY 07/29/13 Furosemide (Furosemide) 40 Mg Tablet, 40 MG PO PRN 08/04/12 Multivitamins (Multivitamin) 1 Tab Tablet, 1 TAB PO DAILY 08/04/12 Digoxin (Digoxin) 250 Mcg Tablet, 250 MCG PO DAILY 08/04/12 Losartan Potassium (Cozaar) 50 Mg Tablet, 50 MG PO DAILY 08/04/12 Sertraline Hcl (Zoloft) 50 Mg Tablet, 50 MG PO DAILY 08/04/12 Warfarin Sodium (Coumadin) 5 Mg Tablet, 5 MG PO DAILY 08/04/12 Discontinued Reported Medications Amox Tr/Potassium Clavulanate (Amox Tr-K Clv 875-125 mg Tab) 875 Mg Tablet, 1 TAB PO BID for 7 Days starting 11/12/16 11/12/16 Valacyclovir HCl (Valacyclovir) 500 Mg Tablet, 1000 MG PO TID for 10 Days starting 11/12/16 11/12/16 Labetalol HCl (Labetalol HCl) 200 Mg Tablet, 100 MG PO BID 11/12/16 Allergies: Coded Allergies: erythromycin base (Verified Allergy, Unknown, HIVES, 11/12/16) Family History FOUND: [place], cancer Vaccines jun 2016 yes 06/2013 Social History Smoking Status: Never smoker Substance Use Type: does not use Marital Status: Sexuality: male partner Housing: house Household Members: spouse Current Occupational Status: retired Advance Directives: Yes DPOA for Healthcare Only (DAUGHTER ALFONSO) Review of Systems Constitutional: DENIES: chills, dizziness, fever, weakness Eyes Vision: DENIES: double vision ENMT Hearing: DENIES: tinnitus Balance: DENIES: vertigo Mouth/Throat: DENIES: sore throat Cardiovascular dyspnea on exertion, murmur, DENIES: chest pain, orthopnea, paroxysmal nocturnal dysp Rhythm/Rate: irregular beat, palpitations Vascular: pedal edema Pulmonary Respiratory: cough, sputum GI Upper Abdomen: DENIES: nausea, vomiting Lower Abdomen: DENIES: diarrhea General: DENIES: dysuria Integumentary Skin: DENIES: rash Neurological General: headache, DENIES: numbness, syncope, weakness All Other Systems All Other Systems: Reviewed (remainder of 10-point ROS Neg.) Physical Exam General General Nourishment: well nourished, well developed, apparent age Vital Signs Vital Signs Date Time Temp Pulse Resp B/P Pulse Ox O2 Delivery O2 Flow Rate FiO2 11/15/16 11:55 95.8 84 22 161/84 96 Nasal Cannula 1.00 Height (Feet): 5 Height (Inches): 5.00 Telemetry Rhythm: Atrial Fibrillation ENMT Brief: FOUND: mucosa moist Neck Brief: NOT FOUND: JVD, carotid bruits Respiratory Brief: FOUND: equal bilaterally, rales (bibasilar), NOT FOUND: clear all huston Cardiovascular (brief) Cardiac Brief: FOUND: murmur, pedal edema, regular rate, NOT FOUND: regular rhythm (afib) Abdomen (brief) Abdominal Brief: FOUND: BS normo active x4, soft Integumentary (brief) Integumentary Brief: FOUND: dry, pink, warm Neurologic RN Documented GCS Eye Opening: Verbal: Motor: Total: Psychiatric (brief) FOUND: alert, oriented Laboratory Laboratory Tests Test 11/14/16 04:04 11/14/16 11:48 11/15/16 06:44 White Blood Count 8.8T/MM3 11.7T/MM3 Red Blood Count 3.91M/MM3 3.93M/MM3 Hemoglobin 11.8GM/DL 11.9GM/DL Hematocrit 37.0% 37.3% Mean Corpuscular Volume 94.6UM3 94.9UM3 Mean Corpuscular Hemoglobin 30.2UUG 30.3UUG Mean Corpuscular Hemoglobin Concent 31.9GM/DL 31.9GM/DL RDW Standard Deviation 45.9FL 47.7FL Platelet Count 128T/MM3 129T/MM3 Mean Platelet Volume 11.2UM3 10.8UM3 Immature Granulocyte % (Auto) % % Neutrophils (%) (Auto) % % Lymphocytes (%) (Auto) % % Monocytes (%) (Auto) % % Eosinophils (%) (Auto) % % Basophils (%) (Auto) % % Absolute Immature Granulocyte (auto T/MM3 T/MM3 Absolute Neutrophils (auto) T/MM3 T/MM3 Absolute Lymphocytes (auto) T/MM3 T/MM3 Absolute Monocytes (auto) T/MM3 T/MM3 Absolute Eosinophils (auto) T/MM3 T/MM3 Absolute Basophils (auto) T/MM3 T/MM3 Neutrophils % (Manual) 93.0% 92.0% Band Neutrophils % 1.0% 2.0% Lymphocytes % (Manual) 4.0% 3.0% Monocytes % (Manual) 2.0% 3.0% Absolute Neutrophils (Manual) 8.2T/MM3 10.8T/MM3 Band Neutrophils # 0.1T/MM3 0.2T/MM3 Lymphocytes # (Manual) 0.4T/MM3 0.4T/MM3 Monocytes # (Manual) 0.2T/MM3 0.4T/MM3 Red Cell Morphology Comment Normal Normal Prothromb Time International Ratio 2.75 2.63 Turbidity < 20 < 20 Sodium Level 146MEQ/L 146MEQ/L Potassium Level 4.2MEQ/L 3.9MEQ/L Chloride Level 107MEQ/L 107MEQ/L Carbon Dioxide Level 24MEQ/L 24MEQ/L Anion Gap 15MEQ/L 15MEQ/L Blood Urea Nitrogen 21.0MG/DL 27.0MG/DL Creatinine 0.7MG/DL 0.6MG/DL Glomerular Filtration Rate Calc 81 96 BUN/Creatinine Ratio 30RATIO 45RATIO Glucose Level 157MG/DL 140MG/DL Calculated Osmolality 287MOSM/KG 288MOSM/KG Calcium Level 9.1MG/DL 8.9MG/DL Icterus Index < 2 < 2 Chemistry Specimen Hemolysis < 15 < 15 Urine Collection Type Cleancatch-midstream Urine Color Yellow Urine Turbidity Clear Urine pH 5.5 Urine Specific [place] >=1.030 Urine Protein 1+ Urine Glucose (UA) Negative Urine Ketones Negative Urine Blood Trace-lysed Urine Nitrite Negative Urine Bilirubin Negative Urine Urobilinogen 0.2EU/DL Urine Leukocyte Esterase Negative Urine RBC None seen/HPF Urine WBC None seen/HPF Urine Squamous Epithelial Cells 0-5 Urine Bacteria Trace Urine Mucus Present Urine Culture Indicated Cult not indicated Total Bilirubin 0.80MG/DL Aspartate Amino Transf (AST/SGOT) 46U/L Alanine Aminotransferase (ALT/SGPT) 63U/L Alkaline Phosphatase 69U/L Total Protein 6.5G/DL Albumin 3.8G/DL Globulin 2.7G/DL Albumin/Globulin Ratio 1.4RATIO Laboratory Tests Test 11/14/16 04:04 11/14/16 11:48 11/15/16 06:44 White Blood Count 8.8T/MM3 11.7T/MM3 Red Blood Count 3.91M/MM3 3.93M/MM3 Hemoglobin 11.8GM/DL 11.9GM/DL Hematocrit 37.0% 37.3% Mean Corpuscular Volume 94.6UM3 94.9UM3 Mean Corpuscular Hemoglobin 30.2UUG 30.3UUG Mean Corpuscular Hemoglobin Concent 31.9GM/DL 31.9GM/DL RDW Standard Deviation 45.9FL 47.7FL Platelet Count 128T/MM3 129T/MM3 Mean Platelet Volume 11.2UM3 10.8UM3 Immature Granulocyte % (Auto) % % Neutrophils (%) (Auto) % % Lymphocytes (%) (Auto) % % Monocytes (%) (Auto) % % Eosinophils (%) (Auto) % % Basophils (%) (Auto) % % Absolute Immature Granulocyte (auto T/MM3 T/MM3 Absolute Neutrophils (auto) T/MM3 T/MM3 Absolute Lymphocytes (auto) T/MM3 T/MM3 Absolute Monocytes (auto) T/MM3 T/MM3 Absolute Eosinophils (auto) T/MM3 T/MM3 Absolute Basophils (auto) T/MM3 T/MM3 Neutrophils % (Manual) 93.0% 92.0% Band Neutrophils % 1.0% 2.0% Lymphocytes % (Manual) 4.0% 3.0% Monocytes % (Manual) 2.0% 3.0% Absolute Neutrophils (Manual) 8.2T/MM3 10.8T/MM3 Band Neutrophils # 0.1T/MM3 0.2T/MM3 Lymphocytes # (Manual) 0.4T/MM3 0.4T/MM3 Monocytes # (Manual) 0.2T/MM3 0.4T/MM3 Red Cell Morphology Comment Normal Normal Prothromb Time International Ratio 2.75 2.63 Turbidity < 20 < 20 Sodium Level 146MEQ/L 146MEQ/L Potassium Level 4.2MEQ/L 3.9MEQ/L Chloride Level 107MEQ/L 107MEQ/L Carbon Dioxide Level 24MEQ/L 24MEQ/L Anion Gap 15MEQ/L 15MEQ/L Blood Urea Nitrogen 21.0MG/DL 27.0MG/DL Creatinine 0.7MG/DL 0.6MG/DL Glomerular Filtration Rate Calc 81 96 BUN/Creatinine Ratio 30RATIO 45RATIO Glucose Level 157MG/DL 140MG/DL Calculated Osmolality 287MOSM/KG 288MOSM/KG Calcium Level 9.1MG/DL 8.9MG/DL Icterus Index < 2 < 2 Chemistry Specimen Hemolysis < 15 < 15 Urine Collection Type Cleancatch-midstream Urine Color Yellow Urine Turbidity Clear Urine pH 5.5 Urine Specific [place] >=1.030 Urine Protein 1+ Urine Glucose (UA) Negative Urine Ketones Negative Urine Blood Trace-lysed Urine Nitrite Negative Urine Bilirubin Negative Urine Urobilinogen 0.2EU/DL Urine Leukocyte Esterase Negative Urine RBC None seen/HPF Urine WBC None seen/HPF Urine Squamous Epithelial Cells 0-5 Urine Bacteria Trace Urine Mucus Present Urine Culture Indicated Cult not indicated Total Bilirubin 0.80MG/DL Aspartate Amino Transf (AST/SGOT) 46U/L Alanine Aminotransferase (ALT/SGPT) 63U/L Alkaline Phosphatase 69U/L Total Protein 6.5G/DL Albumin 3.8G/DL Globulin 2.7G/DL Albumin/Globulin Ratio 1.4RATIO EKG A Fib, HR [address] [place], [place] [address] Name: REGI SERRANO Unit #: [id number] Signed Page 1 of 1 DIAGNOSTIC IMAGING REPORT Report #: [id number] Dictated By: NATHANIEL CHU MD 11/13/16825 Signed date/time: 11/13/16841 Transcribed By: TRANSCRIPT [employer] 11/13/16825 cc: ARNULFO VEGA MD [address] [address] [phone] Dictated By: NATHANIEL CHU MD 11/13/16825 Signed date/time: 11/13/16841 Transcribed By: TRANSCRIPT [employer] 11/13/16825 cc: ARNULFO VEGA MD DATE OF EXAM: 11/12/16 ORDERING DOCTOR: TONIO JAMISON DO TYPE OF EXAM: CHEST, PA & LATERAL REASON FOR EXAM: dyspnea INDICATION: ITS.REASON: dyspnea PROCEDURE: CHEST 2-VIEWS UPRIGHT (PA \\T\\ LAT) Encounter: Initial Comparison: July 27, 2015 Findings: The lungs are stable in appearance without new focal airspace consolidation. There is no pleural effusion or pneumothorax. The heart size, pulmonary vascularity and mediastinal contours are unchanged. IMPRESSION: Stable appearance of the chest without acute cardiopulmonary disease. . Impression/Recommendation Problems: (1) Human metapneumovirus (hMPV) pneumonia Status: Acute Assessment & Plan: per attending (2) Acute respiratory failure Status: Resolved Assessment & Plan: with hypoxia. echo pending (3) Atrial fibrillation, chronic Status: Chronic Assessment & Plan: Continue home medications (4) History of DVT (deep vein thrombosis) Status: Chronic Assessment & Plan: chronic anticoagulation on Warfarin, therapeutic. (5) Essential (primary) hypertension Status: Chronic Assessment & Plan: Continue home medications (6) Mixed hyperlipidemia Status: Chronic Assessment & Plan: continue home medications Recommendation Acute respiratory failure: with hypoxia. echo pending. Likely exacerbated by infectious illness. Afib: Obtain a Digoxin level in am. I examined the patient and discussed with Dr. Butler, together we agree on the plan of care. Thank you for allowing us to participate in the care of this patient. DESIREE BUTLER MD 11/21/16 1329: Past Medical History Current Medications Home Meds Active Scripts Labetalol HCl (Labetalol HCl) 200 Mg Tablet, 1 TAB PO BID for HYPERTENSION, #60 TAB Prov:ARNULFO VEGA MD 11/18/16 Diphenhydramine HCl (Benadryl) 25 Mg Capsule, 1 CAP PO HS Y for sleep/allergies , #30 CAP Prov:ARNULFO VEGA MD 11/18/16 Prednisone (Prednisone) 20 Mg Tablet, 20 MG PO WB, #5 TAB Take 1 tablet, by mouth, daily with breakfast. Prov:ARNULFO VEGA MD 11/18/16 Sodium Chloride (Deep Sea) 450 [place]/45 Ml [place], 2 SPRAY EA NOSTRIL QID for NASAL CONGESTION, #1 BOTTLE Prov:ARNULFO VEGA MD 11/18/16 Guaifenesin/Dextromethorphan (Mucinex Dm ER 600-30 mg Tablet) 1 Each Tab.er.12h , 1 TAB PO Q12HR Y for COUGH/CONGESTION, #30 TAB Prov:ARNULFO VEGA MD 11/18/16 Amlodipine Besylate (Amlodipine Besylate) 5 Mg Tablet, 5 MG PO DAILY for HYPERTENSION, #30 TAB Prov:ARNULFO VEGA MD 11/18/16 Reported Medications Tramadol HCl (Tramadol HCl) 50 Mg Tablet, 50 MG PO TID Y for PAIN 11/12/16 Levothyroxine Sodium (Synthroid) 25 Mcg Tablet, 25 MCG PO DAILY 07/29/13 Furosemide (Furosemide) 40 Mg Tablet, 40 MG PO PRN 08/04/12 Multivitamins (Multivitamin) 1 Tab Tablet, 1 TAB PO DAILY 08/04/12 Digoxin (Digoxin) 250 Mcg Tablet, 250 MCG PO DAILY 08/04/12 Losartan Potassium (Cozaar) 50 Mg Tablet, 50 MG PO DAILY 08/04/12 Sertraline Hcl (Zoloft) 50 Mg Tablet, 50 MG PO DAILY 08/04/12 Warfarin Sodium (Coumadin) 5 Mg Tablet, 5 MG PO DAILY 08/04/12 Discontinued Reported Medications Amox Tr/Potassium Clavulanate (Amox Tr-K Clv 875-125 mg Tab) 875 Mg Tablet, 1 TAB PO BID for 7 Days starting 11/12/16 11/12/16 Valacyclovir HCl (Valacyclovir) 500 Mg Tablet, 1000 MG PO TID for 10 Days starting 11/12/16 11/12/16 Labetalol HCl (Labetalol HCl) 200 Mg Tablet, 100 MG PO BID 11/12/16 Allergies: Coded Allergies: erythromycin base (Verified Allergy, Unknown, HIVES, 11/12/16) Impression/Recommendation Recommendation After examining the patient I agree with the above assessment. I am involved in the formulation of the patient's plan of care. BRII LUNDBERG APRN Nov 15, 2016 15:36 DESIREE BUTLER MD Nov 21, 2016 13:29
--- NOTE | 2016-11-15 18:27 | NUR ---
SHIFT SUMMARY BLOOD PRESSURE BETTER CONTROLLED, BUT STILL HYPERTENSIVE. 1L NC, BUT O2 SATURATION IS IMPROVING. PATIENT STATES SHE FEELS BETTER THAN THIS MORNING. SOUND LESS WHEEZY. UP TO BATHROOM WITH SBA. SALINE LOCKED. GOOD PO INTAKE AND GOOD URINE OUTPUT. UP TO CHAIR FOR BREAKFAST AND LUNCH. Addendum: 11/15/16 at 1829 by BIANKA BARON RN TWO BMS TODAY.
[2016-11-15] MEDS: LEVOFLOXACIN 750 mg IVPB 750 MG in D5W 150 ML IV SCH (21:43)
[2016-11-15] MEDS ORDERED: NS 500 ML IV PRN (22:00)
[2016-11-15] MEDS: ZOLPIDEM 5 MG TABLET PO PRN (23:05)
[2016-11-16] VITALS (10 sets, daily range): BP systolic 150–195; BP diastolic 80–98; PULSE 82–88; RESP 18–22; TEMP 96.1–97.6; O2SAT 93–98
[2016-11-16 05:42] LABS: HCT - HEMATOCRIT 36.8 % (36-46); HGB - HEMOGLOBIN 11.7 GM/DL (12-16); MEAN CORPUSCULAR HGB CONC(MCHC 31.8 GM/DL (31-37); MEAN CORPUSCULAR VOLUME 94.4 UM3 (80-100); MEAN PLATELET VOLUME 11.3 UM3 (9.4-12.4); WBC - WHITE BLOOD COUNT 9.4 T/MM3 (4.5-11.0)
[2016-11-16] MEDS: LEVOTHYROXINE 25 MCG TABLET PO SCH (05:43)
[2016-11-16 05:46] LABS: INR 2.59 (0.76-1.04); PROTHROMBIN TIME 28.2 SEC (9.31-12.49)
[2016-11-16 05:56] LABS: ALBUMIN 3.6 G/DL (3.5-5.0); ANION GAP 12 MEQ/L (5-15); BUN/CREATININE RATIO 62 RATIO (6-26); CHLORIDE 105 MEQ/L (98-107); CO2 - CARBON DIOXIDE 28 MEQ/L (22-30); CREATININE 0.6 MG/DL (0.7-1.2); GLOMERULAR FILTRATION RATE 96; GLUCOSE 138 MG/DL (65-110); MAGNESIUM 2.6 MG/DL (1.6-2.3); POTASSIUM 4.1 MEQ/L (3.6-5); SODIUM 145 MEQ/L (134-144)
[2016-11-16 06:01] LABS: PROBNP 3020 PG/ML (0-175)
[2016-11-16 06:14] LABS: PHOSPHORUS 2.9 MG/DL (2.5-4.5)
[2016-11-16 06:32] LABS: LYMPHOCYTES # (MANUAL) 0.6 T/MM3 (1-4.8); MONOCYTES # (MANUAL) 0.7 T/MM3 (0-0.8); NEUTROPHILS #(MANUAL)-ABSOLUTE 8.2 T/MM3 (1.8-7.7); TOTAL CELLS COUNTED 100 %
--- NOTE | 2016-11-16 07:15 | NUR ---
STATUS PT ON 1-2 L O2 VIA NC DURING NIGHT. HYPERTENSIVE THIS MORNING AT 186/96. RECHECKED AND IT WAS 156/98 WITH NO INTERVENTION. CONTACT AND DROPLET PRECAUTIONS MAINTAINED. GAVE 2.5 MG DOSE OF HS ZOLPIDEM FOR INSOMNIA. PT REPORTED THAT IT WAS THE PERFECT AMOUNT TO HELP HER SLEEP. HAD COUGHING EPISODE IN EVENING, BUT DID NOT WANT THIS RN TO CALL DOCTOR. STATED THAT IF SHE WOULD BE ABLE TO STOP FOR A WHILE IT WOULD QUIT. DENIED PAIN. BED ALARM ON. PATIENT USES CALL LIGHT APPROPRIATELY. SHIFT REPORT GIVEN TO CHACHO LIVINGSTON.
[2016-11-16] MEDS: ALBUTEROL/IPRATROPIUM INHAL. 2.5mg-0.5mg/3ml Neb. AEROSOL SCH ×4 (07:48→19:00)
[2016-11-16] MEDS: LOSARTAN 50 MG TABLET PO SCH (08:28)
[2016-11-16] MEDS: DIGOXIN 250 MCG TABLET PO SCH (08:28)
[2016-11-16] MEDS: AMLODIPINE 5 MG TABLET PO SCH (08:28)
[2016-11-16] MEDS: LABETALOL 100 MG TABLET PO SCH ×2 (08:28→21:01)
[2016-11-16] MEDS: SERTRALINE 50 MG TABLET PO SCH (08:28)
[2016-11-16] MEDS: PredniSONE 10 MG TABLET PO SCH (08:28)
--- NOTE | 2016-11-16 08:29 | NUR ---
COUMADIN CONSULT (Recurring): Today's INR = 2.59. Will give Warfarin 1.5 mg today. Will continue to monitor & make adjustments accordingly. Thank you.
[2016-11-16] MEDS ORDERED: WARFARIN 1 MG TABLET PO SCH (12:00)
--- NOTE | 2016-11-16 14:29 | PNPDOC ---
KEISHA MILLIGAN APRN 11/16/16 1428: Subjective Date DATE: 11/16/16 TIME: 14:19 Subjective Mary is seen today in follow-up. She is currently weaned down to room air, however, has significant amount of coughing during examination. Bedside saturations are checked and patient is 87-89%. She verbalizes that she feels that she is improving, however, continues to have significant amount of coughing episodes and inquires about cough medicine. Denies chest pain, or GI complaints. Reports does not have much of a appetite, however, is trying to force herself to eat. No difficulty with urination or bowel movements. Objective Vital Signs Vital signs Vital Signs Date Time Temp Pulse Resp B/P Pulse Ox O2 Delivery O2 Flow Rate FiO2 11/16/16 11:53 96.7 87 20 150/80 95 Room Air 11/16/16 08:00 1.00 Telemetry Rhythm: Atrial Fibrillation Height (Feet): 5 Height (Inches): 5.00 Weight (Kilograms): 87.200 General General Appearance: Alert, Orientated x 3, Cooperative, No Acute Distress Eyes (Brief) Eyes: FOUND: EOMI ENMT (Brief) ENMT: FOUND: mucosa moist, normal dentition, NOT FOUND: pharnyx erythema Neck (Brief) Neck: FOUND: midline, NOT FOUND: adenopathy, carotid bruits, tracheal deviation Respiratory (Brief) Respiratory: NOT FOUND: wheezes Comments course breath sounds Cardiovascular (Brief) Cardiac: FOUND: regular rate, regular rhythm, NOT FOUND: murmur, pedal edema Capillary Refill: <2 sec Abdomen (Brief) Abdominal: FOUND: BS normo active x4, soft, NOT FOUND: distended, tender Lymphatic (Brief) Lymphatic: NOT FOUND: adenopathy Musculoskeletal (Brief) Musculoskeletal: NOT FOUND: tenderness Integumentary (Brief) Integumentary: FOUND: dry, pink, warm Neurologic (Brief) Neurological: FOUND: cranial 2-12 intact Psychiatric (Brief) Psychiatric: FOUND: alert, attentive, normal affect, oriented Laboratory Laboratory Laboratory Tests 11/15/16 06:44 11/16/16 05:09 Laboratory Tests 11/15/16 06:44 11/16/16 05:09 Assessment & Plan Problems: (1) Reactive airway disease with acute exacerbation Status: Acute (2) Atrial fibrillation, chronic Status: Chronic (3) CAP (community acquired pneumonia) Status: Acute (4) Acute respiratory failure Status: Acute Qualifiers: Respiratory failure complication: hypoxia Qualified Codes: J96.01 - Acute respiratory failure with hypoxia (5) Fluid overload Status: Acute Qualifiers: Hypervolemia type: other Qualified Codes: E87.79 - Other fluid overload (6) Uncontrolled hypertension Status: Acute Plan/Intensity of Service 11/16/16 Mary is having a moderate amount of coughing this afternoon during exam. Will order Tessalon Perles that she can use as needed. RT is working on weaning down oxygen. She is currently at 87-89% on room air. Continue with DuoNeb breathing treatments and Pulmicort inhaler Oral prednisone for pulmonary inflammation ECHO read pending Recheck CBC and BMP tomorrow Code Status Full Code, unverified Hospital Course Summary Disclaimer The hospital course summary below is not to be considered part of the above Progress Note. Hospital Course Summary #1 reactive airway disease with acute exacerbation. Solu-Medrol decreased from 62 mg every 6 hours to 30 mg every 6 hours IV. DuoNeb and Pulmicort as scheduled. Patient has shown improvement. Reevaluate tomorrow. #2 community-acquired pneumonia. Continue Levaquin due to erythromycin allergy. CBC CMP chest x-ray in a.m. #3 atrial fibrillation. Stable, INR elevating due to Levaquin. Pharmacy consulted to manage Coumadin dosing. #4 discharge planning. Patient may be able to discharge tomorrow if stable, most likely Thursday discharge. #5 general maintenance. Other meds continued is current. Gabino Bustamante M.D. 11/15/16- *Pulm- Continues to be wheezy, SOA. Suspect resp and fluid overload as contributing factors. Continue Levaquin, Steroids. Duoneb, Pulmicort. Add Acapella valve. O2 PRN to keep sats elevated. Repeat PA & Lat CXR in AM. *CV- AFib. Suspect some HF. No echo on file- hx of pericardial effusion. Get echo. Add Lasix now and KCL. Her lab looks intravascularly dry, but she appears centrally overloaded. Restart home Lasix when indicated. Repeat labs in AM *Uncontrolled HTN- Remains quite elevated. Continue Norvasc, Metoprolol Resume Cozaar- SCr is ok. Diurese today- restart Lasix in AM if indicated. PRN Hydralazine IV. *AFib- Tele. Dig. beta-zahraa. Warfarin per pharmacy. Still fairly ill- continue inpatient status. 11/16/16 Mary is having a moderate amount of coughing this afternoon during exam. Will order Tessalon Perles that she can use as needed. RT is working on weaning down oxygen. She is currently at 87-89% on room air. Continue with DuoNeb breathing treatments and Pulmicort inhaler Oral prednisone for pulmonary inflammation ECHO read pending Recheck CBC and BMP tomorrow JUSTIN HERZOG MD 11/16/16 1538: Assessment & Plan Assessment 11/16/2016-I reviewed this chart, the patient history, and the ASSISTANT PORTFOLIO MANAGER's/PA's documented findings as above. We discussed and formulated the assessment and plan as above with the additions below.-Dr. Herzog Patient states she's feeling better today. She is currently off of oxygen and does not feel short of breath. She continues to have some cough but it is improving. She states overall she is feeling much better. Appetite is improving. She had a bowel movement yesterday. She is urinating without difficulties. She does still edematous especially in her hands and arms. On exam she is alert and oriented and in no acute distress. HEENT reveals sclerae to be anicteric and oropharynx is moist. Neck is supple. Chest reveals expiratory wheezes and mild rhonchi. Cardiovascular reveals an irregularly irregular rhythm with well-controlled rate. Abdomen is soft and nontender with positive bowel sounds. Extremities reveal nonpitting edema. Chest x-ray on my read reveals some mild cardiomegaly with perhaps some mild pulmonary edema. Echocardiogram shows mild cardial effusion. Normal ejection fraction of 61%. Mild mitral and tricuspid regurg. PA pressure mildly elevated at 34. No significant aortic stenosis. Lab work was reviewed. INR is therapeutic. CBC shows normal platelets and normal white count. Hemoglobin is stable at 11.7. Basic metabolic reveals a sodium of 145 which is improved. BUN 37. Creatinine 0.6. Magnesium is elevated at 2.6 and phosphorus is normal at 2.9. ProBNP is elevated 3020 up from 1160 Overall acute hypoxic respiratory failure secondary to reactive airways disease and parainfluenza virus infection is improving. Continue breathing treatments and oral steroids. Maintain off oxygen if able. Give Lasix IV 1 for mild pulmonary edema and fluid overload. Resume 40 mg of Lasix daily in the morning. At home the patient states she was taking it as needed usually twice a week. Weight is up 4 kg since admission. Possible dismissal to home tomorrow if doing well. Recheck CBC and basic metabolic profile tomorrow. Regarding hypertension, she continues on labetalol and Cozaar. Norvasc was added. Blood pressure was elevated this morning. She has when necessary hydralazine if needed. DVT Prophylaxis: Coumadin KEISHA MILLIGAN APRN Nov 16, 2016 14:28 JUSTIN HERZOG MD Nov 16, 2016 15:38
[2016-11-16] MEDS ORDERED: BENZONATATE 200 MG CAPSULE PO PRN (14:30)
--- NOTE | 2016-11-16 14:42 | PNPDOC ---
BRII LUNDBERG PAINTER 11/16/16 1433: Subjective Date DATE: 11/16/16 TIME: 14:30 Subjective Mary is in her bed in her room on Medical. She denies cardiac complaints. Objective Vital Signs Vital signs Vital Signs 11/16/16 11/16/16 11/16/16 11/16/16 05:00 05:44 07:48 07:50 Temp 96.2 Pulse 88 75 Resp 22 20 B/P 186/96 156/98 Pulse Ox 98 95 O2 Delivery Nasal Cannula Nasal Cannula O2 Flow Rate 2.00 1.00 11/16/16 11/16/16 11/16/16 11/16/16 07:52 08:00 08:28 09:23 Temp 96.1 Pulse 76 83 79 Resp 20 22 B/P 195/95 Pulse Ox 98 O2 Delivery Nasal Cannula O2 Flow Rate 1.00 11/16/16 11/16/16 11/16/16 11/16/16 11:36 11:36 11:36 11:53 Temp 96.7 Pulse 80 84 87 Resp 15 20 B/P 150/80 Pulse Ox 93 95 O2 Delivery Room Air Telemetry Rhythm: Atrial Fibrillation Height (Feet): 5 Height (Inches): 5.00 Weight (Kilograms): 87.200 General Alert, Orientated x 3, Cooperative ENMT (Brief) mucosa moist Neck (Brief) NOT FOUND: JVD, carotid bruits Respiratory (Brief) equal bilaterally, rales (bibasilar), NOT FOUND: clear all huston Cardiovascular (Brief) murmur, pedal edema, NOT FOUND: click, gallop, regular rate, regular rhythm, rub Abdomen (Brief) BS normo active x4, soft Integumentary (Brief) dry, pink, warm Psychiatric (Brief) alert, oriented Laboratory Laboratory Laboratory Tests Test 11/15/16 06:44 11/16/16 05:09 White Blood Count 11.7T/MM3 9.4T/MM3 Red Blood Count 3.93M/MM3 3.90M/MM3 Hemoglobin 11.9GM/DL 11.7GM/DL Hematocrit 37.3% 36.8% Mean Corpuscular Volume 94.9UM3 94.4UM3 Mean Corpuscular Hemoglobin 30.3UUG 30.0UUG Mean Corpuscular Hemoglobin Concent 31.9GM/DL 31.8GM/DL RDW Standard Deviation 47.7FL 46.9FL Platelet Count 129T/MM3 133T/MM3 Mean Platelet Volume 10.8UM3 11.3UM3 Immature Granulocyte % (Auto) % % Neutrophils (%) (Auto) % % Lymphocytes (%) (Auto) % % Monocytes (%) (Auto) % % Eosinophils (%) (Auto) % % Basophils (%) (Auto) % % Absolute Immature Granulocyte (auto T/MM3 T/MM3 Absolute Neutrophils (auto) T/MM3 T/MM3 Absolute Lymphocytes (auto) T/MM3 T/MM3 Absolute Monocytes (auto) T/MM3 T/MM3 Absolute Eosinophils (auto) T/MM3 T/MM3 Absolute Basophils (auto) T/MM3 T/MM3 Neutrophils % (Manual) 92.0% 87.0% Band Neutrophils % 2.0% Lymphocytes % (Manual) 3.0% 6.0% Monocytes % (Manual) 3.0% 7.0% Absolute Neutrophils (Manual) 10.8T/MM3 8.2T/MM3 Band Neutrophils # 0.2T/MM3 Lymphocytes # (Manual) 0.4T/MM3 0.6T/MM3 Monocytes # (Manual) 0.4T/MM3 0.7T/MM3 Red Cell Morphology Comment Normal Normal Prothromb Time International Ratio 2.63 2.59 Turbidity < 20 < 20 Sodium Level 146MEQ/L 145MEQ/L Potassium Level 3.9MEQ/L 4.1MEQ/L Chloride Level 107MEQ/L 105MEQ/L Carbon Dioxide Level 24MEQ/L 28MEQ/L Anion Gap 15MEQ/L 12MEQ/L Blood Urea Nitrogen 27.0MG/DL 37.0MG/DL Creatinine 0.6MG/DL 0.6MG/DL Glomerular Filtration Rate Calc 96 96 BUN/Creatinine Ratio 45RATIO 62RATIO Glucose Level 140MG/DL 138MG/DL Calculated Osmolality 288MOSM/KG 290MOSM/KG Calcium Level 8.9MG/DL 9.0MG/DL Total Bilirubin 0.80MG/DL Icterus Index < 2 < 2 Aspartate Amino Transf (AST/SGOT) 46U/L Alanine Aminotransferase (ALT/SGPT) 63U/L Alkaline Phosphatase 69U/L Total Protein 6.5G/DL Albumin 3.8G/DL 3.6G/DL Globulin 2.7G/DL Albumin/Globulin Ratio 1.4RATIO Chemistry Specimen Hemolysis < 15 < 15 Phosphorus Level 2.9MG/DL Magnesium Level 2.6MG/DL [id number]-Type Natriuretic Peptide 3020PG/ML Digoxin Level 1.0NG/ML Laboratory Tests 11/16/16 05:09 Laboratory Tests 11/16/16 05:09 EKG Atrial Fibrillation Medications Current Medications Methylprednisolone Sodium Succinate 125 mg 125 mg O ONCE IV Last administered on 11/12/16 19:26; Start 11/12/16 at 18:30; Stop 11/12/16 at 18:31; Status DC Ceftriaxone Sodium 1 g/Sodium Chloride 100 ml @ 200 mls/hr Q24H IV ; Start 07/19 at 20:15; Stop 11/12/16 at 21:32; Status DC Azithromycin/ Sodium Chloride (Zithromax/NS) 250 ml @ 167 mls/hr Q24H IV ; Start 11/12/16 at 20:15; Stop 11/12/16 at 21:32; Status DC Albuterol Sulfate (Proventil 2.5 Mg/3 ml) 2.5 mg Q2H PRN AEROSOL WHEEZING Last administered on 11/14/16 01:39; Start 11/12/16 at 20:15 Digoxin (Lanoxin) 250 mcg DAILY PO Last administered on 11/16/16 08:28; Start 11/13/16 at 09:00 Labetalol HCl (Normodyne) 200 mg BID PO Last administered on 11/16/16 08:28; Start 11/12/16 at 21:00 Levothyroxine Sodium (Synthroid) 25 mcg DAILY PO Last administered on 05:29; Start 11/13/16 at 09:00; Stop 11/13/16 at 09:00; Status DC Warfarin Sodium 5 mg 5 mg NOON PO ; Start 11/13/16 at 12:00; Status Cancel Levofloxacin 750 mg/Dextrose/Water 150 ml @ 100 mls/hr DAILY IV Last administered on 11/12/16 21:59; Start 11/12/16 at 21:30; Stop 11/13/16 at 06:28 ; Status DC Sodium Chloride (Normal Saline IV) 1,000 ml @ 125 mls/hr Q8H IV Last administered on 11/15/16 07:49; Start 11/13/16 at 05:30; Stop 11/15/16 at 12:00 ; Status DC Levothyroxine Sodium 25 mcg 25 mcg ACB PO Last administered on 11/16/16 05:43 ; Start 11/14/16 at 06:30 Levofloxacin/ Dextrose/Water (LEVAQUIN 750 mg IVPB/D5W) 150 ml @ 100 mls/hr 2130 IV Last administered on 11/15/16 21:43; Start 11/13/16 at 21:30 Budesonide (PULMICORT 0.5mg/ 2ml) 0.5 mg BID AEROSOL Last administered on 08:13; Start 11/13/16 at 09:00; Stop 11/14/16 at 18:07; Status DC Albuterol/ Ipratropium (Duoneb) 3 ml RTQID AEROSOL Last administered on 11:35; Start 11/13/16 at 11:00 Warfarin Sodium (Coumadin Protocol) NOTE MC ; Start 11/13/16 at 09:30 Warfarin Sodium (COUMADIN 2 mg) 2 mg NOON ONCE PO Last administered on 12:08; Start 11/13/16 at 12:00; Stop 11/13/16 at 12:01; Status DC Amlodipine Besylate (Norvasc) 5 mg DAILY PO Last administered on 11/16/16 08: 28; Start 11/14/16 at 09:00 Hydralazine HCl (Apresoline) 10 mg Q6HR PRN IV INCREASED BLOOD PRESSURE Last administered on 11/16/16 08:29; Start 11/14/16 at 03:45 Warfarin Sodium (COUMADIN 3 mg) 1.5 mg NOON PO Last administered on 11/14/16 12:38; Start 11/14/16 at 12:00; Stop 11/14/16 at 12:30; Status DC Sertraline HCl (Zoloft) 50 mg O ONCE PO Last administered on 11/14/16 16:06; Start 11/14/16 at 16:00; Stop 11/14/16 at 16:01; Status DC Budesonide (Pulmicort 180 Mcg Flexhaler) 2 puff BID ORAL INH Last administered on 11/15/16 20:35; Start 11/14/16 at 21:00 Methylprednisolone Sodium Succinate (Solu-Medrol) 30 mg Q6HR IV Last administered on 11/15/16 21:43; Start 11/14/16 at 21:00; Stop 11/15/16 at 23:59 ; Status DC Miscellaneous Medication (May use PRN orders) 1 PRN PRN MC ; Start 11/15/16 at 10:00 Magnesium Hydroxide (Mom) 30 ml DAILY PRN PO CONSTIPATION Last administered on 11/15/16 10:48; Start 11/15/16 at 10:00 Acetaminophen (Tylenol Regular Strength) 1-2 TABS Q5H PRN PO DISCOMFORT; Start 11/15/16 at 10:00 Furosemide (Lasix) 40 mg O ONCE IV Last administered on 11/15/16 12:38; Start 11/15/16 at 12:00; Stop 11/15/16 at 12:35; Status DC Potassium Chloride (Kdur) 20 meq O ONCE PO Last administered on 11/15/16 12: 38; Start 11/15/16 at 12:00; Stop 11/15/16 at 12:35; Status DC Losartan Potassium (COZAAR 50 mg) 50 mg DAILY PO Last administered on 08:28; Start 11/15/16 at 12:00 Prednisone (PredniSONE) 30 mg WB PO Last administered on 11/16/16 08:28; Start 11/16/16 at 08:00 Sodium Chloride (NS) 500 ml PRN PRN IV ; Start 11/15/16 at 22:00 Zolpidem Tartrate (AMBIEN 5mg) 2.5-5 mg HS PRN PO INSOMNIA Last administered on 11/15/16 23:05; Start 11/15/16 at 23:00 Warfarin Sodium (COUMADIN 1 mg) 1.5 mg NOON PO Last administered on 11/16/16 12:53; Start 11/16/16 at 12:00; Stop 11/16/16 at 12:30; Status DC Benzonatate (TESSALON PERLES 200 mg) 200 mg TID PRN PO COUGH; Start 11/16/16 at 14:30; Status UNV Assessment & Plan Problems: (1) Human metapneumovirus (hMPV) pneumonia Status: Acute Assessment & Plan: per attending (2) Acute respiratory failure Status: Resolved Qualifiers: Respiratory failure complication: hypoxia Qualified Codes: J96.01 - Acute respiratory failure with hypoxia Assessment & Plan: with hypoxia. echo pending (3) Atrial fibrillation, chronic Status: Chronic Assessment & Plan: Continue home medications (4) History of DVT (deep vein thrombosis) Status: Chronic Assessment & Plan: chronic anticoagulation on Warfarin, therapeutic. (5) Essential (primary) hypertension Status: Chronic Assessment & Plan: Continue home medications (6) Mixed hyperlipidemia Status: Chronic Assessment & Plan: continue home medications Plan/Intensity of Service 11/15/16 Acute respiratory failure: with hypoxia. echo pending. Likely exacerbated by infectious illness. Afib: Obtain a Digoxin level in am. I examined the patient and discussed with Dr. Butler, together we agree on the plan of care. 11/16/16 Echo report dictated by Dr Butler. Patient seen and examined by Dr Butler, and together we discussed the patient. No changes made to plan of care. Thank you for allowing us to participate in the care of this patient. DESIREE BUTLER MD 11/21/16 1330: Assessment & Plan Plan/Intensity of Service After examining the patient I agree with the above assessment. I am involved in the formulation of the patient's plan of care. BRII LUNDBERG APRN Nov 16, 2016 14:33 DESIREE BUTLER MD Nov 21, 2016 13:30
[2016-11-16] MEDS ORDERED: FUROSEMIDE 40 MG/4 ML INJECTION IV ONE (15:30)
--- NOTE | 2016-11-16 16:27 | STEVAL ---
Eval Subjective and History Date/Time of Eval DATE: 11/16/16 TIME: 16:18 Medical Diagnosis CAP, PNEUMONIA, DEHYDRATION Orientations: x 3, Alert, Cooperative Primary Complaint: COUGHS OCCASIONALLY WHILE EATING Date of Onset of Primary Com: 11/14/16 Prior History of This Problem: Yes (OCCASIONALLY) Patient's Goals: RETURN HOME Significant Past Medical Hx: PT ADMITTED 11/12/16 WITH SHORTNESS OF BREATH, PNEUMONIA, STREP AND STAPH INFECTION. PMH: BREAST CANCER, HTN, ATRIAL FIB. Medical History Form Reviewed: Yes Residence Type: Private home/apartment Lives With: Spouse (DISABLED) Prior Functional Status: PT ATE 100% OF SOFT DIET/CHOPPED MEAT AND REGULAR LIQUIDS. Current Functional Status: PT TOLERATED DIET WELL WITH NO S/S OF ASPIRATION. Education Subject: Diet Person(s) Educated: Spouse/significant other Instruction Understanding Demo: Pt. verbalizes understand Education Comment PEARL DIVER educated patient on reasoning for evaluation. Patient was agreeable to evaluation. Subjective and History Comment: PT WAS ALERT AND ORIENTED X3. Dysphagia Evaluation Evaluation Location: Bed Evaluation Angle: 90 Tongue Elevation: No Impairment (WFL) Tongue Lateralization: No Impairment (WFL) Tongue Protrusion: No Impairment (WFL) Tongue Retraction: No Impairment (WFL) Tongue Extension Midline: No Impairment (WFL) Labial Approximation: No Impairment (WFL) Intraoral Air Pressure: Minimal Impairment Volitional Cough: No Impairment (WFL) Larynx Elevation During Swallo: Minimal Impairment Saliva Control: No Impairment (WFL) Dentition: Dentures (UPPER DENTURE NOT IN ) Oral Peripheral Exam Comment: WFL Lip Seal: Adequate-liquid, Adequate-pudding, Adequate-solid Lingual Manipulation: Adequate-liquid, Adequate-pudding, Adequate-solid Chewing: Adequate-solid Oral cavity clear post swallow: Adequate-liquid, Adequate-pudding, Adequate- solid Swallow initiated w/o delay: Adequate-liquid, Adequate-pudding, Adequate-solid Multiple swallows not needed: Adequate-liquid, Adequate-pudding, Adequate-solid Voice clear&dry post swallow: Adequate-liquid, Adequate-pudding, Adequate-solid No cough/throat clear: Adequate-liquid, Adequate-pudding, Adequate-solid Assessment/Plan of Care Speech Therapy Impressions: PT REPORTED THAT SHE OCCASIONALLY SWALLOWED THE WRONG WAY AND COUGHED. LAST EPISODE WAS 2 WEEKS AGO. ORAL RANGE OF MOTION WAS WITHIN FUNCTIONAL LIMITS. SHE IS CURRENTLY ON SOFT DIET/CHOPPED MEAT AND REGULAR LIQUIDS. NURSING REPORTED THAT SHE ATE 100% WITH NO DIFFICULTY. PT DRANK THIN LIQUIDS FROM CUP WITH NO DIFFICULTY. SWALLOW WAS PROMPT AND VOICE DRY. 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 EVAL ONLY ST Treatment Plan: Evaluation Only ST Treatment Plan Frequency: N/A Treatment Plan Duration: N/A Plan of Care Comment EVAL ONLY Recommended Diet: SOFT /CHOPPED REGULAR LIQUIDS Date of Visit 11/16/16 Time Visit Began: 16:00 Time Visit Ended: 16:20 ST Assess/Plan of Care: ST Treatment Charge: Swallow Eval Minutes of Individual Therapy: 20 MAGDALENO DUNN MS CCC-PEARL DIVER Nov 16, 2016 16:22
--- NOTE | 2016-11-16 19:31 | NUR ---
SHIFT SUMMARY PT ALERT AND ORIENTED X3. PT ON RA, DENIES SOA. DENIES PAIN, DENIES N/V AT THIS TIME. UP WITH STAND BY ASSIST, STEADY ON FEET. IVL RIGHT HAND PATENT. ADEQUATE URINE OUTPUT. BM THIS SHIFT. PT EXPRESSES UNDERSTANDING OF SHIFTING WEIGHT TO PREVENT SKIN BREAKDOWN. PT ABLE TO MAKE NEEDS KNOWN. CALL LIGHT WITHIN REACH.
[2016-11-16] MEDS: LEVOFLOXACIN 750 mg IVPB 750 MG in D5W 150 ML IV SCH (21:01)
[2016-11-16] MEDS: ZOLPIDEM 5 MG TABLET PO PRN (22:12)
[2016-11-17] VITALS (9 sets, daily range): BP systolic 133–172; BP diastolic 70–99; PULSE 69–85; RESP 18–23; TEMP 95.4–98.3; O2SAT 91–99
[2016-11-17] MEDS ORDERED: GUAIFENESIN DM 600mg/30mg TABLET PO PRN (00:30)
--- NOTE | 2016-11-17 05:26 | NUR ---
Status Pt denied pain, SOA, and nausea during night. Up x1 with SBA with bed alarm in use during night. Coughing episodes during evening. PRN Mucinex given as charted. Stress incontinence with coughing. VSS on RA. Will continue to monitor.
[2016-11-17] MEDS: LEVOTHYROXINE 25 MCG TABLET PO SCH (05:34)
[2016-11-17 05:50] LABS: BASOPHILS % (AUTO) 0.1 % (0-2); EOSINOPHILS % (AUTO) 0.5 % (0-4); HCT - HEMATOCRIT 37.1 % (36-46); HGB - HEMOGLOBIN 11.9 GM/DL (12-16); IMMATURE GRANULOCYTE # (AUTO) 0.07 T/MM3 (0.00-0.03); IMMATURE GRANULOCYTE % (AUTO) 0.8 % (0.0-0.5); LYMPHOCYTES % (AUTO) 12.2 % (23-45); MEAN CORPUSCULAR HGB 30.1 UUG (26-34); MEAN CORPUSCULAR HGB CONC(MCHC 32.1 GM/DL (31-37); MEAN CORPUSCULAR VOLUME 93.7 UM3 (80-100); MEAN PLATELET VOLUME 10.3 UM3 (9.4-12.4); MONOCYTES # (AUTO) 0.7 T/MM3 (0-0.8); MONOCYTES % (AUTO) 8.4 % (0-9.0); NEUTROPHILS #(AUTO)-ABSOLUTE 6.6 T/MM3 (1.8-7.7); RED BLOOD COUNT 3.96 M/MM3 (4.00-5.20); WBC - WHITE BLOOD COUNT 8.5 T/MM3 (4.5-11.0)
[2016-11-17 05:54] LABS: INR 2.06 (0.76-1.04); PROTHROMBIN TIME 22.4 SEC (9.31-12.49)
[2016-11-17 05:56] LABS: ANION GAP 10 MEQ/L (5-15); BUN/CREATININE RATIO 57 RATIO (6-26); CALCIUM 8.8 MG/DL (8.4-10.2); CHLORIDE 102 MEQ/L (98-107); CO2 - CARBON DIOXIDE 32 MEQ/L (22-30); CREATININE 0.7 MG/DL (0.7-1.2); GLOMERULAR FILTRATION RATE 81; GLUCOSE 95 MG/DL (65-110); POTASSIUM 3.5 MEQ/L (3.6-5); SODIUM 144 MEQ/L (134-144)
[2016-11-17] MEDS: ALBUTEROL/IPRATROPIUM INHAL. 2.5mg-0.5mg/3ml Neb. AEROSOL SCH ×4 (07:58→19:19)
--- NOTE | 2016-11-17 08:30 | NUR ---
o2 sats 89 % 0n room air o2 on at 3 liters is wheezey and sounds congested corase sounding cough. up to chair and bathroom with a little assistance.
[2016-11-17] MEDS ORDERED: FUROSEMIDE 40 MG TABLET PO SCH (09:00)
--- NOTE | 2016-11-17 09:10 | DI ---
LOCATION OF DICTATION: [facility] EXAM: CHEST, PA LATERAL HISTORY: ITS.REASON: Cough, PNA COMPARISON: No prior studies available for comparison. FINDINGS: The heart size is mildly enlarged. The mediastinal configuration is unremarkable. Stable blunting of the posterior costophrenic sulci which may reflect pleural thickening or small effusions. There are no consolidating opacities or pleural effusions. There is no evidence for a pneumothorax. The osseous structures are within normal limits. IMPRESSION: 1. Mild cardiomegaly without evidence for CHF or pneumonia. 2. Stable blunting the posterior costophrenic angles which may reflect small effusions or pleural thickening. .
[2016-11-17] MEDS: DIGOXIN 250 MCG TABLET PO SCH (09:33)
[2016-11-17] MEDS: SERTRALINE 50 MG TABLET PO SCH (09:33)
[2016-11-17] MEDS: AMLODIPINE 5 MG TABLET PO SCH (09:33)
[2016-11-17] MEDS: LABETALOL 100 MG TABLET PO SCH ×2 (09:33→22:20)
[2016-11-17] MEDS: PredniSONE 10 MG TABLET PO SCH (09:34)
[2016-11-17] MEDS: LOSARTAN 50 MG TABLET PO SCH (09:34)
--- NOTE | 2016-11-17 09:51 | NUR ---
WARFARIN CONSULT S: 81 y/o F on warfarin for afib. Home dose is 5 mg PO daily. Goal INR 2-3. O: Date INR Warfarin Dose 11/12 1.69 Home dose (5 mg) taken prior to admit per home med list 11/13 2.29 2 mg 11/14 2.75 1.5 mg 11/15 2.63 1.5 mg 11/16 2.59 1.5 mg 11/17 2.06 PLAN: 2 mg A/P: INR therapeutic. Drug-drug interaction between warfarin and levofloxacin (increases INR). Will order warfarin 2 mg PO x 1 today. Will continue to monitor & make adjustments accordingly. Thank you for the consult. Julissa Vaughan, PharmD, BCPS
--- NOTE | 2016-11-17 10:02 | ECHOF ---
DATE OF PROCEDURE November 15, [address] Gabino Bustamante This is a two-dimensional echo with spectral Doppler, color-flow and M-mode. It was obtained in a patient with shortness of breath. Left atrium is dilated. Left ventricle end-diastolic dimension is normal. Left ventricle wall thickness is increased. LV systolic function is normal with ejection fraction of 61%. Right atrium is dilated. Right ventricle is normal. Aortic root dimension is normal. Mitral valve is morphologically normal with mild mitral regurgitation. Aortic valve is a trileaflet structure with no stenosis or insufficiency. Tricuspid valve shows mild tricuspid regurgitation with estimated pulmonary artery systolic pressure of 34. Pulmonary valve shows trace of pulmonary insufficiency. There is small global pericardial effusion with no echocardiographic evidence of tamponade. IMPRESSION 1. Normal LV systolic function with ejection fraction of 61%. 2. Biatrial dilation. 3. Concentric left ventricular hypertrophy. 4. Small global pericardial effusion with no echocardiographic evidence of tamponade. 5. Mild mitral regurgitation. 6. Mild tricuspid regurgitation with estimated pulmonary artery systolic pressure of 34. 7. Trace of pulmonary insufficiency. [facility]
[2016-11-17] MEDS ORDERED: WARFARIN 2 MG TABLET PO ONE (12:00)
--- NOTE | 2016-11-17 12:42 | PNPDOC ---
BRII LUNDBERG PATENT COUNSEL 11/17/16 1242: Subjective Date DATE: 11/17/16 TIME: 12:05 Subjective Mary is up in the recliner in her room on medical, she denies cardiac complaints. Objective Vital Signs Vital signs Vital Signs 11/17/16 11/17/16 11/17/16 11/17/16 04:46 07:27 08:00 08:00 Temp 95.4 96.1 Pulse 76 74 72 Resp 18 23 20 B/P 159/79 157/93 Pulse Ox 93 91 99 O2 Delivery Room Air Room Air 11/17/16 11/17/16 11/17/16 11/17/16 08:00 09:33 11:30 11:30 Pulse 77 72 73 Resp 20 24 Pulse Ox 98 11/17/16 11:41 Temp 96.8 Pulse 76 Resp 18 B/P 143/96 Pulse Ox 97 O2 Delivery Nasal Cannula O2 Flow Rate 2.00 Telemetry Rhythm: Atrial Fibrillation Height (Feet): 5 Height (Inches): 5.00 Weight (Kilograms): 84.900 General Alert, Orientated x 3 ENMT (Brief) mucosa moist Neck (Brief) NOT FOUND: JVD, carotid bruits Respiratory (Brief) equal bilaterally, NOT FOUND: clear all huston, rales, wheezes (coarse) Cardiovascular (Brief) murmur, pedal edema, NOT FOUND: click, gallop, regular rate, regular rhythm, rub Abdomen (Brief) BS normo active x4, soft Integumentary (Brief) pink, warm Psychiatric (Brief) alert, oriented Laboratory Laboratory Laboratory Tests Test 11/16/16 05:09 11/17/16 05:34 White Blood Count 9.4T/MM3 8.5T/MM3 Red Blood Count 3.90M/MM3 3.96M/MM3 Hemoglobin 11.7GM/DL 11.9GM/DL Hematocrit 36.8% 37.1% Mean Corpuscular Volume 94.4UM3 93.7UM3 Mean Corpuscular Hemoglobin 30.0UUG 30.1UUG Mean Corpuscular Hemoglobin Concent 31.8GM/DL 32.1GM/DL RDW Standard Deviation 46.9FL 46.4FL Platelet Count 133T/MM3 138T/MM3 Mean Platelet Volume 11.3UM3 10.3UM3 Immature Granulocyte % (Auto) % 0.8% Neutrophils (%) (Auto) % 78.0% Lymphocytes (%) (Auto) % 12.2% Monocytes (%) (Auto) % 8.4% Eosinophils (%) (Auto) % 0.5% Basophils (%) (Auto) % 0.1% Absolute Immature Granulocyte (auto T/MM3 0.07T/MM3 Absolute Neutrophils (auto) T/MM3 6.6T/MM3 Absolute Lymphocytes (auto) T/MM3 1.0T/MM3 Absolute Monocytes (auto) T/MM3 0.7T/MM3 Absolute Eosinophils (auto) T/MM3 0.0T/MM3 Absolute Basophils (auto) T/MM3 0.0T/MM3 Neutrophils % (Manual) 87.0% Lymphocytes % (Manual) 6.0% Monocytes % (Manual) 7.0% Absolute Neutrophils (Manual) 8.2T/MM3 Lymphocytes # (Manual) 0.6T/MM3 Monocytes # (Manual) 0.7T/MM3 Red Cell Morphology Comment Normal Prothromb Time International Ratio 2.59 2.06 Turbidity < 20 < 20 Sodium Level 145MEQ/L 144MEQ/L Potassium Level 4.1MEQ/L 3.5MEQ/L Chloride Level 105MEQ/L 102MEQ/L Carbon Dioxide Level 28MEQ/L 32MEQ/L Anion Gap 12MEQ/L 10MEQ/L Blood Urea Nitrogen 37.0MG/DL 40.0MG/DL Creatinine 0.6MG/DL 0.7MG/DL Glomerular Filtration Rate Calc 96 81 BUN/Creatinine Ratio 62RATIO 57RATIO Glucose Level 138MG/DL 95MG/DL Calculated Osmolality 290MOSM/KG 287MOSM/KG Calcium Level 9.0MG/DL 8.8MG/DL Phosphorus Level 2.9MG/DL Magnesium Level 2.6MG/DL Icterus Index < 2 < 2 [id number] Natriuretic Peptide 3020PG/ML Albumin 3.6G/DL Chemistry Specimen Hemolysis < 15 46 Digoxin Level 1.0NG/ML Laboratory Tests 11/17/16 05:34 Laboratory Tests 11/17/16 05:34 EKG a fib Medications Current Medications Methylprednisolone Sodium Succinate 125 mg 125 mg O ONCE IV Last administered on 11/12/16t 19:26; Start 11/12/16 at 18:30; Stop 11/12/16 at 18:31; Status DC Ceftriaxone Sodium 1 g/Sodium Chloride 100 ml @ 200 mls/hr Q24H IV ; Start 07/19 at 20:15; Stop 11/12/16 at 21:32; Status DC Azithromycin/ Sodium Chloride (Zithromax/NS) 250 ml @ 167 mls/hr Q24H IV ; Start 11/12/16 at 20:15; Stop 11/12/16 at 21:32; Status DC Albuterol Sulfate (Proventil 2.5 Mg/3 ml) 2.5 mg Q2H PRN AEROSOL WHEEZING Last administered on 11/14/16 01:39; Start 11/12/16 at 20:15 Digoxin (Lanoxin) 250 mcg DAILY PO Last administered on 11/17/16 09:33; Start 11/13/16 at 09:00 Labetalol HCl (Normodyne) 200 mg BID PO Last administered on 11/17/16 09:33; Start 11/12/16 at 21:00 Levothyroxine Sodium (Synthroid) 25 mcg DAILY PO Last administered on 05:29; Start 11/13/16 at 09:00; Stop 11/13/16 at 09:00; Status DC Warfarin Sodium 5 mg 5 mg NOON PO ; Start 11/13/16 at 12:00; Status Cancel Levofloxacin 750 mg/Dextrose/Water 150 ml @ 100 mls/hr DAILY IV Last administered on 11/12/16 21:59; Start 11/12/16 at 21:30; Stop 11/13/16 at 06:28 ; Status DC Sodium Chloride (Normal Saline IV) 1,000 ml @ 125 mls/hr Q8H IV Last administered on 11/15/16 07:49; Start 11/13/16 at 05:30; Stop 11/15/16 at 12:00 ; Status DC Levothyroxine Sodium 25 mcg 25 mcg ACB PO Last administered on 11/17/16 05:34 ; Start 11/14/16 at 06:30 Levofloxacin/ Dextrose/Water (LEVAQUIN 750 mg IVPB/D5W) 150 ml @ 100 mls/hr 2130 IV Last administered on 11/16/16 21:01; Start 11/13/16 at 21:30 Albuterol/ Ipratropium (Duoneb) 3 ml RTQID AEROSOL Last administered on 11:38; Start 11/13/16 at 11:00 Warfarin Sodium (Coumadin Protocol) NOTE MC ; Start 11/13/16 at 09:30 Amlodipine Besylate (Norvasc) 5 mg DAILY PO Last administered on 11/17/16 09: 33; Start 11/14/16 at 09:00 Hydralazine HCl (Apresoline) 10 mg Q6HR PRN IV INCREASED BLOOD PRESSURE Last administered on 11/16/16 08:29; Start 11/14/16 at 03:45 Warfarin Sodium (COUMADIN 3 mg) 1.5 mg NOON PO Last administered on 11/14/16 12:38; Start 11/14/16 at 12:00; Stop 11/14/16 at 12:30; Status DC Sertraline HCl (Zoloft) 50 mg O ONCE PO Last administered on 11/14/16 16:06; Start 11/14/16 at 16:00; Stop 11/14/16 at 16:01; Status DC Budesonide (Pulmicort 180 Mcg Flexhaler) 2 puff BID ORAL INH Last administered on 11/16/16 19:35; Start 11/14/16 at 21:00; Stop 11/17/16 at 10:14; Status DC Methylprednisolone Sodium Succinate (Solu-Medrol) 30 mg Q6HR IV Last administered on 11/15/16 21:43; Start 11/14/16 at 21:00; Stop 11/15/16 at 23:59 ; Status DC Miscellaneous Medication (May use PRN orders) 1 PRN PRN MC ; Start 11/15/16 at 10:00 Magnesium Hydroxide (Mom) 30 ml DAILY PRN PO CONSTIPATION Last administered on 11/15/16 10:48; Start 11/15/16 at 10:00 Acetaminophen (Tylenol Regular Strength) 1-2 TABS Q5H PRN PO DISCOMFORT; Start 11/15/16 at 10:00 Losartan Potassium (COZAAR 50 mg) 50 mg DAILY PO Last administered on 09:34; Start 11/15/16 at 12:00 Prednisone (PredniSONE) 30 mg WB PO Last administered on 11/17/16 09:34; Start 11/16/16 at 08:00 Sodium Chloride (NS) 500 ml PRN PRN IV ; Start 11/15/16 at 22:00 Zolpidem Tartrate (AMBIEN 5mg) 2.5-5 mg HS PRN PO INSOMNIA Last administered on 11/16/16 22:12; Start 11/15/16 at 23:00 Warfarin Sodium (COUMADIN 1 mg) 1.5 mg NOON PO Last administered on 11/16/16 12:53; Start 11/16/16 at 12:00; Stop 11/16/16 at 12:30; Status DC Benzonatate (TESSALON PERLES 200 mg) 200 mg TID PRN PO COUGH; Start 11/16/16 at 14:30 Furosemide (Lasix) 40 mg DAILY PO Last administered on 11/17/16 09:34; Start 11/17/16 at 09:00 Guaifenesin/ Dextromethorphan (Mucinex Dm 600/ 30 Mg Tablet) 1 tab Q12HR PRN PO Last administered on 11/17/16 00:40; Start 11/17/16 at 00:30 Warfarin Sodium (COUMADIN 2 mg) 2 mg NOON ONCE PO ; Start 11/17/16 at 12:00; Stop 11/17/16 at 12:01; Status DC Budesonide (PULMICORT 0.5mg/ 2ml) 0.5 mg BID AEROSOL ; Start 11/17/16 at 21:00 Potassium Chloride (Kdur) 20 meq O ONCE PO ; Start 11/17/16 at 17:30; Stop at 17:31 Assessment & Plan Problems: (1) Human metapneumovirus (hMPV) pneumonia Status: Acute Assessment & Plan: per attending (2) Acute respiratory failure Status: Resolved Qualifiers: Respiratory failure complication: hypoxia Qualified Codes: J96.01 - Acute respiratory failure with hypoxia Assessment & Plan: with hypoxia. echo pending (3) Atrial fibrillation, chronic Status: Chronic Assessment & Plan: Continue home medications (4) History of DVT (deep vein thrombosis) Status: Chronic Assessment & Plan: chronic anticoagulation on Warfarin, therapeutic. (5) Essential (primary) hypertension Status: Chronic Assessment & Plan: Continue home medications (6) Mixed hyperlipidemia Status: Chronic Assessment & Plan: continue home medications Plan/Intensity of Service 11/15/16 Acute respiratory failure: with hypoxia. echo pending. Likely exacerbated by infectious illness. Afib: Obtain a Digoxin level in am. I examined the patient and discussed with Dr. Butler, together we agree on the plan of care. 11/16/16 Echo report dictated by Dr Butler. Patient seen and examined by Dr Butler, and together we discussed the patient. No changes made to plan of care. 11/17/16 sajan Souravaneudy Thank you for allowing us to participate in the care of this patient. DESIREE BUTLER MD 11/21/16 1335: Assessment & Plan Plan/Intensity of Service After examining the patient I agree with the above assessment. I am involved in the formulation of the patient's plan of care. BRII LUNDBERG APRN Nov 17, 2016 12:42 DESIREE BUTLER MD Nov 21, 2016 13:35
[2016-11-17] MEDS ORDERED: POTASSIUM CHLORIDE 10 MEQ TABLET PO ONE (12:45)
--- NOTE | 2016-11-17 13:06 | PNPDOC ---
Subjective Date DATE: 11/17/16 TIME: 12:53 Subjective F/U: Pneumonia, Reactive airway disease, Resp failure. Doing fair. Notes continued cough/congestion. Not mobilizing sputum. Chest wall not sore from cough. Increased nasal congestion and drainage. No nausea or ab pain, but appetite decreased. Strength improving slowly. Objective Vital Signs Vital signs Vital Signs Date Time Temp Pulse Resp B/P Pulse Ox O2 Delivery O2 Flow Rate FiO2 11/17/16 11:41 96.8 76 18 143/96 97 Nasal Cannula 2.00 Telemetry Rhythm: Atrial Fibrillation Height (Feet): 5 Height (Inches): 5.00 Weight (Kilograms): 84.900 General General Appearance: Alert, Obese, Orientated x 3, Well Nourished, Well Developed, Cooperative, Mild Distress, Looks Stated Age Eyes (Brief) Eyes: FOUND: EOMI, PERRL, NOT FOUND: scleral icterus ENMT (Brief) ENMT: FOUND: hearing intact, mucosa moist (No thrush ) Neck (Brief) Neck: FOUND: midline, NOT FOUND: nuchal rigidity, spasm Respiratory (Brief) Respiratory: FOUND: other (Harsch cough ), wheezes (Faints, scattered. ), NOT FOUND: clear all huston (Coase bilateally. ), rales Cardiovascular (Brief) Cardiac: FOUND: pedal edema (Trace ), NOT FOUND: regular rate (irregular ), regular rhythm (irregular ) Abdomen (Brief) Abdominal: FOUND: BS normo active x4, soft, NOT FOUND: distended, tender Musculoskeletal (Brief) Musculoskeletal: FOUND: extremities move equally, NOT FOUND: deformity, loss of motion, spasm Integumentary (Brief) Integumentary: FOUND: dry, warm Neurologic (Brief) Neurological: FOUND: cranial 2-12 intact, motor (intact ) Psychiatric (Brief) Psychiatric: FOUND: alert, attentive, normal affect, oriented Laboratory Laboratory Laboratory Tests 11/16/16 05:09 11/17/16 05:34 Laboratory Tests 11/16/16 05:09 11/17/16 05:34 Assessment & Plan Problems: (1) Reactive airway disease with acute exacerbation Status: Acute (2) CAP (community acquired pneumonia) Status: Acute (3) Acute respiratory failure Status: Acute Qualifiers: Respiratory failure complication: hypoxia Qualified Codes: J96.01 - Acute respiratory failure with hypoxia (4) Parainfluenza infection (5) Atrial fibrillation, chronic Status: Chronic (6) Fluid overload Status: Acute Qualifiers: Hypervolemia type: other Qualified Codes: E87.79 - Other fluid overload (7) Uncontrolled hypertension Status: Acute (8) Essential (primary) hypertension Status: Chronic (9) Depression Status: Chronic Qualifiers: Depression Type: unspecified Qualified Codes: F32.9 - Major depressive disorder, single episode, unspecified Plan/Intensity of Service Continue with Levaquin for pulmonary coverage. Start Nasal saline QID to decrease nasal congestion. Change Mucinex DM to routine - stared this am. Encourage Acapella and ambulation - PT consulted Wean O2. Additional oral potassium today due to decreased potassium from diuretic use. Recheck BMP and Magnesium in am due to diuretic use. Recheck CBC in am due to pneumonia. Continue to monitor INR due to Levaquin. With pt continuing to have hypoxia and needing O2, do not feel ready for discharge to home today. Case discussed with CM. Time spent with patients care 35 minutes. DVT Prophylaxis: SCD'S, Coumadin Code Status Full Code, unverified Hospital Course Summary Disclaimer The hospital course summary below is not to be considered part of the above Progress Note. Hospital Course Summary #1 reactive airway disease with acute exacerbation. Solu-Medrol decreased from 62 mg every 6 hours to 30 mg every 6 hours IV. DuoNeb and Pulmicort as scheduled. Patient has shown improvement. Reevaluate tomorrow. #2 community-acquired pneumonia. Continue Levaquin due to erythromycin allergy. CBC CMP chest x-ray in a.m. #3 atrial fibrillation. Stable, INR elevating due to Levaquin. Pharmacy consulted to manage Coumadin dosing. #4 discharge planning. Patient may be able to discharge tomorrow if stable, most likely Thursday discharge. #5 general maintenance. Other meds continued is current. Gabino Bustamante M.D. 11/15/16- *Pulm- Continues to be wheezy, SOA. Suspect resp and fluid overload as contributing factors. Continue Levaquin, Steroids. Duoneb, Pulmicort. Add Acapella valve. O2 PRN to keep sats elevated. Repeat PA & Lat CXR in AM. *CV- AFib. Suspect some HF. No echo on file- hx of pericardial effusion. Get echo. Add Lasix now and KCL. Her lab looks intravascularly dry, but she appears centrally overloaded. Restart home Lasix when indicated. Repeat labs in AM *Uncontrolled HTN- Remains quite elevated. Continue Norvasc, Metoprolol Resume Cozaar- SCr is ok. Diurese today- restart Lasix in AM if indicated. PRN Hydralazine IV. *AFib- Tele. Dig. beta-zahraa. Warfarin per pharmacy. Still fairly ill- continue inpatient status. 11/16/16 Mary is having a moderate amount of coughing this afternoon during exam. Will order Tessalon Perles that she can use as needed. RT is working on weaning down oxygen. She is currently at 87-89% on room air. Continue with DuoNeb breathing treatments and Pulmicort inhaler Oral prednisone for pulmonary inflammation ECHO read pending Recheck CBC and BMP tomorrow 11/17 Doing fair. Notes continued cough/congestion. Not mobilizing sputum. Chest wall not sore from cough. Increased nasal congestion and drainage. No nausea or ab pain, but appetite decreased. Strength improving slowly. Continue with Levaquin for pulmonary coverage. Start Nasal saline QID to decrease nasal congestion. Change Mucinex DM to routine - stared this am. Encourage Acapella and ambulation - PT consulted Wean O2. Additional oral potassium today due to decreased potassium from diuretic use. Recheck BMP and Magnesium in am due to diuretic use. Recheck CBC in am due to pneumonia. Continue to monitor INR due to Levaquin. With pt continuing to have hypoxia and needing O2, do not feel ready for discharge to home today. ARNULFO VEGA MD Nov 17, 2016 12:56
[2016-11-17] MEDS: SALINE NASAL SPRAY 45ml EA NOSTRIL SCH ×3 (15:56→21:00)
--- NOTE | 2016-11-17 16:52 | NUR ---
ambulated in reddy with gait belt and walker. tolerated well back to room to chair.
[2016-11-17] MEDS ORDERED: POTASSIUM CHLORIDE 20 MEQ TABLET PO ONE (17:30)
--- NOTE | 2016-11-17 18:37 | NUR ---
remains on room air sats are 91%has an occ harse sounding cough.
[2016-11-17] MEDS: BUDESONIDE INH.SOLN. 0.5mg/2ml NEB AEROSOL SCH (19:21)
[2016-11-17] MEDS: GUAIFENESIN DM 600mg/30mg TABLET PO SCH (22:20)
[2016-11-17] MEDS: LEVOFLOXACIN 750 mg IVPB 750 MG in D5W 150 ML IV SCH (22:21)
[2016-11-17] MEDS: ZOLPIDEM 5 MG TABLET PO PRN (22:36)
[2016-11-18] VITALS (9 sets, daily range): BP systolic 128–190; BP diastolic 72–94; PULSE 64–85; RESP 18–22; TEMP 95.7–96.8; O2SAT 92–98
--- NOTE | 2016-11-18 02:44 | NUR ---
Oxygen Sats 87-88% while sleeping. 2L/NC applied. Will monitor.
[2016-11-18 05:26] LABS: ALBUMIN 3.3 G/DL (3.5-5.0); ALBUMIN/GLOBULIN RATIO 1.4 RATIO (1.1-2.2); ALKALINE PHOSPHATASE 72 U/L (38-126); ALT (SGPT) 74 U/L (9-52); ANION GAP 8 MEQ/L (5-15); AST (SGOT) 37 U/L (14-36); BUN/CREATININE RATIO 49 RATIO (6-26); CALCIUM 8.5 MG/DL (8.4-10.2); CHLORIDE 101 MEQ/L (98-107); CO2 - CARBON DIOXIDE 34 MEQ/L (22-30); CREATININE 0.7 MG/DL (0.7-1.2); GLOMERULAR FILTRATION RATE 81; GLUCOSE 98 MG/DL (65-110); MAGNESIUM 2.2 MG/DL (1.6-2.3); POTASSIUM 3.7 MEQ/L (3.6-5); SODIUM 143 MEQ/L (134-144); TOTAL PROTEIN 5.7 G/DL (6.3-8.2)
[2016-11-18 05:27] LABS: BASOPHILS % (AUTO) 0.1 % (0-2); EOSINOPHILS # (AUTO) 0.1 T/MM3 (0-0.5); HCT - HEMATOCRIT 36.7 % (36-46); HGB - HEMOGLOBIN 11.8 GM/DL (12-16); IMMATURE GRANULOCYTE # (AUTO) 0.13 T/MM3 (0.00-0.03); IMMATURE GRANULOCYTE % (AUTO) 1.8 % (0.0-0.5); INR 1.8 (0.76-1.04); LYMPHOCYTES # (AUTO) 0.8 T/MM3 (1-4.8); LYMPHOCYTES % (AUTO) 11.4 % (23-45); MEAN CORPUSCULAR HGB 29.6 UUG (26-34); MEAN CORPUSCULAR HGB CONC(MCHC 32.2 GM/DL (31-37); MEAN CORPUSCULAR VOLUME 92.2 UM3 (80-100); MEAN PLATELET VOLUME 10.7 UM3 (9.4-12.4); MONOCYTES # (AUTO) 0.6 T/MM3 (0-0.8); MONOCYTES % (AUTO) 8.4 % (0-9.0); NEUTROPHILS #(AUTO)-ABSOLUTE 5.7 T/MM3 (1.8-7.7); NEUTROPHILS % (AUTO) 77.3 % (33-66); PROTHROMBIN TIME 19.6 SEC (9.31-12.49); RED BLOOD COUNT 3.98 M/MM3 (4.00-5.20); WBC - WHITE BLOOD COUNT 7.3 T/MM3 (4.5-11.0)
[2016-11-18] MEDS: BUDESONIDE INH.SOLN. 0.5mg/2ml NEB AEROSOL SCH (06:52)
[2016-11-18] MEDS: ALBUTEROL/IPRATROPIUM INHAL. 2.5mg-0.5mg/3ml Neb. AEROSOL SCH ×3 (06:52→15:15)
[2016-11-18] MEDS: LEVOTHYROXINE 25 MCG TABLET PO SCH (07:12)
--- NOTE | 2016-11-18 07:23 | NUR ---
Status Pt alert in bed, no c/o. Remains on 2L oxygen.
[2016-11-18] MEDS: SERTRALINE 50 MG TABLET PO SCH (09:11)
[2016-11-18] MEDS: LOSARTAN 50 MG TABLET PO SCH (09:11)
[2016-11-18] MEDS: GUAIFENESIN DM 600mg/30mg TABLET PO SCH (09:11)
[2016-11-18] MEDS: LABETALOL 100 MG TABLET PO SCH (09:11)
[2016-11-18] MEDS: AMLODIPINE 5 MG TABLET PO SCH (09:11)
[2016-11-18] MEDS: PredniSONE 10 MG TABLET PO SCH (09:12)
[2016-11-18] MEDS: SALINE NASAL SPRAY 45ml EA NOSTRIL SCH ×2 (09:12→12:42)
[2016-11-18] MEDS: DIGOXIN 250 MCG TABLET PO SCH (09:12)
--- NOTE | 2016-11-18 09:24 | NUR ---
COUMADIN CONSULT (Recurring): Today's INR = 1.80. Will give Warfarin 2.5mg today. Will continue to monitor & make adjustments accordingly. Thank you.
--- NOTE | 2016-11-18 10:44 | NUR ---
CM SPOKE WITH PT, INTRODUCED SELF, PROVIDED CONTACT INFO, EXPLAINED ROLE. PT STATED SHE HOPES TO BE DC'D TODAY. HER PLAN IS STILL TO RETURN HOME WITH HER SPOUSE (WHO CANNOT WALK) AND HER DAUGHTER (WHO PROVIDES ASSISTANCE NEEDED). PT STATED SHE DOES NOT NEED HOME HEALTH; SHE SAID SHE HAS HAD HOME HEALTH IN THE PAST, AND KNOWS HOW SHE CAN START THIS AGAIN IF SHE NEEDS TO. SHE SAID HER DAUGHTER IS AVAILABLE TO ASSIST NEEDED. PT DENIED HAVING DME NEEDS. REVIEWED IM LETTER WITH PT; SHE SIGNED IT AND HAD NO QUESTIONS/CONCERNS ABOUT IT. THE POSSIBLE NEED FOR HOME OXYGEN WILL BE FOLLOWED UP WITH; PT AWARE OF THIS. Addendum: 11/18/16 at 1046 by HANNAH LEE Amended: Links added.
[2016-11-18] MEDS ORDERED: WARFARIN 2.5 MG TABLET PO SCH (12:00)
--- NOTE | 2016-11-18 12:32 | PNPDOC ---
Subjective Date DATE: 11/18/16 TIME: 12:23 Subjective F/U: Pneumonia, Reactive airway disease, Resp failure. Doing better today. Breathing easier-less cough and congestion. Feels acapella helping. Nasal saline helping. Appetite stable. No nausea. No ab pain. Urinating well. Strength improving. No f/c. Objective Vital Signs Vital signs Vital Signs Date Time Temp Pulse Resp B/P Pulse Ox O2 Delivery O2 Flow Rate FiO2 11/18/16 11:37 77 22 162/87 92 Room Air 11/18/16 10:04 1.00 11/18/16 07:53 96.8 Telemetry Rhythm: Atrial Fibrillation Height (Feet): 5 Height (Inches): 5.00 Weight (Kilograms): 83.900 General General Appearance: Alert, Obese, Orientated x 3, Well Nourished, Well Developed, Cooperative, Looks Stated Age Eyes (Brief) Eyes: FOUND: EOMI, PERRL, NOT FOUND: scleral icterus ENMT (Brief) ENMT: FOUND: hearing intact, mucosa moist Neck (Brief) Neck: FOUND: midline, NOT FOUND: nuchal rigidity, spasm Respiratory (Brief) Respiratory: FOUND: equal bilaterally, other (No distress on RA), NOT FOUND: clear all huston (decreased ), rales, wheezes Cardiovascular (Brief) Cardiac: NOT FOUND: regular rate (Irregular), regular rhythm (Irregular ) Abdomen (Brief) Abdominal: FOUND: BS normo active x4, soft, NOT FOUND: distended, tender Extremities (Brief) Extremity : Side: Bilateral Extremity: leg Extremity Finding: FOUND: edema (trace ) Musculoskeletal (Brief) Musculoskeletal: FOUND: extremities move equally, NOT FOUND: deformity, spasm, tenderness Integumentary (Brief) Integumentary: FOUND: dry, warm Neurologic (Brief) Neurological: FOUND: cranial 2-12 intact, motor (Intact ) Psychiatric (Brief) Psychiatric: FOUND: alert, attentive, normal affect, oriented Laboratory Laboratory Laboratory Tests 11/17/16 05:34 11/18/16 05:03 Laboratory Tests 11/17/16 05:34 11/18/16 05:03 Assessment & Plan Problems: (1) Reactive airway disease with acute exacerbation Status: Acute (2) CAP (community acquired pneumonia) Status: Resolved (3) Acute respiratory failure Status: Resolved Qualifiers: Respiratory failure complication: hypoxia Qualified Codes: J96.01 - Acute respiratory failure with hypoxia (4) Parainfluenza infection Status: Acute (5) Atrial fibrillation, chronic Status: Chronic (6) Fluid overload Status: Resolved Qualifiers: Hypervolemia type: other Qualified Codes: E87.79 - Other fluid overload (7) Uncontrolled hypertension Status: Resolved (8) Essential (primary) hypertension Status: Chronic (9) Depression Status: Chronic Qualifiers: Depression Type: unspecified Qualified Codes: F32.9 - Major depressive disorder, single episode, unspecified (10) Anticoagulated with warfarin Status: Chronic (11) Hypothyroidism Status: Chronic Qualifiers: Hypothyroidism type: acquired Qualified Codes: E03.9 - Hypothyroidism, unspecified (12) Obesity (BMI 30-39.9) Status: Chronic Plan/Intensity of Service Will d/c to home - stable condition. Continue Prednisone 20mg daily for 5 days. May stop Levaquin. Continue Acapella and Mucinex DM. Increase activities as able. F/U with Dr Conteh in 1 week - check CMP and INR at that time. See orders for details. Case discussed with CM. Time spent with pt care and discharge greater than 35 minutes. DVT Prophylaxis: Coumadin Code Status Full Code, unverified Hospital Course Summary Disclaimer The hospital course summary below is not to be considered part of the above Progress Note. Hospital Course Summary #1 reactive airway disease with acute exacerbation. Solu-Medrol decreased from 62 mg every 6 hours to 30 mg every 6 hours IV. DuoNeb and Pulmicort as scheduled. Patient has shown improvement. Reevaluate tomorrow. #2 community-acquired pneumonia. Continue Levaquin due to erythromycin allergy. CBC CMP chest x-ray in a.m. #3 atrial fibrillation. Stable, INR elevating due to Levaquin. Pharmacy consulted to manage Coumadin dosing. #4 discharge planning. Patient may be able to discharge tomorrow if stable, most likely Thursday discharge. #5 general maintenance. Other meds continued is current. Gabino Bustamante M.D. 11/15/16- *Pulm- Continues to be wheezy, SOA. Suspect resp and fluid overload as contributing factors. Continue Levaquin, Steroids. Duoneb, Pulmicort. Add Acapella valve. O2 PRN to keep sats elevated. Repeat PA & Lat CXR in AM. *CV- AFib. Suspect some HF. No echo on file- hx of pericardial effusion. Get echo. Add Lasix now and KCL. Her lab looks intravascularly dry, but she appears centrally overloaded. Restart home Lasix when indicated. Repeat labs in AM *Uncontrolled HTN- Remains quite elevated. Continue Norvasc, Metoprolol Resume Cozaar- SCr is ok. Diurese today- restart Lasix in AM if indicated. PRN Hydralazine IV. *AFib- Tele. Dig. beta-zahraa. Warfarin per pharmacy. Still fairly ill- continue inpatient status. 11/16/16 Mary is having a moderate amount of coughing this afternoon during exam. Will order Tessalon Perles that she can use as needed. RT is working on weaning down oxygen. She is currently at 87-89% on room air. Continue with DuoNeb breathing treatments and Pulmicort inhaler Oral prednisone for pulmonary inflammation ECHO read pending Recheck CBC and BMP tomorrow 11/17 Doing fair. Notes continued cough/congestion. Not mobilizing sputum. Chest wall not sore from cough. Increased nasal congestion and drainage. No nausea or ab pain, but appetite decreased. Strength improving slowly. Continue with Levaquin for pulmonary coverage. Start Nasal saline QID to decrease nasal congestion. Change Mucinex DM to routine - stared this am. Encourage Acapella and ambulation - PT consulted Wean O2. Additional oral potassium today due to decreased potassium from diuretic use. Recheck BMP and Magnesium in am due to diuretic use. Recheck CBC in am due to pneumonia. Continue to monitor INR due to Levaquin. With pt continuing to have hypoxia and needing O2, do not feel ready for discharge to home today. 11/18 Doing better today. Breathing easier-less cough and congestion. Feels acapella helping. Nasal saline helping. Appetite stable. No nausea. No ab pain. Urinating well. Strength improving. No f/c. Will d/c to home - stable condition. Continue Prednisone 20mg daily for 5 days. May stop Levaquin. Continue Acapella and Mucinex DM. Increase activities as able. F/U with Dr Conteh in 1 week - check CMP and INR at that time. See orders for details. ARNULFO VEGA MD Nov 18, 2016 12:27
[2016-11-18] MEDS ORDERED: DIPH25CA84 PO (12:38)
[2016-11-18] MEDS ORDERED: LABE200T PO (12:38)
[2016-11-18] MEDS ORDERED: AMLO5TAB2 PO (12:38)
[2016-11-18] MEDS ORDERED: SODI45SP7 EA NOSTRIL (12:38)
[2016-11-18] MEDS ORDERED: GUAI-782 PO (12:38)
[2016-11-18] MEDS ORDERED: PRED20TA PO (12:38)
--- NOTE | 2016-11-18 14:53 | NUR ---
CM SPOKE WITH RN. PT OFF OXYGEN AND WON'T NEED IT AT HOME.
--- NOTE | 2016-11-18 15:56 | NUR ---
PT NOTE: Pt declined skilled therapy services, reporting she is going home in a couple of hours. Call [phone] with questions.
--- NOTE | 2016-11-18 17:53 | NUR ---
shift status WEANED OFF OF 02 continues with a coarse cough. tele and ivl pulled dc instructions reviewed prescriptions called to [facility] in [place] [phone] dc per wc with daughter per wc.
--- NOTE | 2016-11-21 13:16 | DSF ---
Date of admission is 11/12/2016. Date of discharge 11/18/2016. ADMISSION DIAGNOSIS Pneumonia. DISCHARGE DIAGNOSIS Pneumonia - clinically improved. ASSOCIATED CONDITIONS AND COMPLICATIONS Reactive airway disease with acute exacerbation. Acute respiratory failure. Parainfluenza infection. Chronic atrial fibrillation. Uncontrolled hypertension - improved. Hypertension. Depression. Coagulopathy with Coumadin. Volume overload - resolved. PROCEDURES Echocardiogram - Normal LV systolic function with EF 61%. Small global pericardial effusion without tamponade noted. Concentric left ventricular hypertrophy. CONSULTS Dr. Butler - Cardiology. CLINICAL RESUME The patient is a 81-year-old female who presents to [facility] Emergency Room secondary to weakness. She has three-day history of increasing shortness of breath. She did see her primary care provider on morning of the who started her on antibiotics. The patient states that since she got home earlier today she has continued to have shortness of breath and has cough productive of green sputum. She has generally not felt well for the past two weeks. She did fall about two weeks ago. This was a nonsyncopal event. She denies fevers, chills or sweats. In emergency room she was evaluated. Chest x-ray shows evidence of early right lower lobe infiltrate. She is mildly hypoxic, requiring oxygen at 2 liters. In light of her community-acquired pneumonia, mild hypoxia, hospitalist service was notified and patient was subsequently placed in inpatient admission status at [facility] for further evaluation and treatment. For complete details of the H&P refer to that document. LABORATORY White blood count is 7.9 with 72% neutrophils and 6% bands. Hemoglobin is 12.0 with hematocrit 37.2, MCV 93.9 and platelets 119,000. Serum sodium is 145, potassium 4.6, chloride 105, CO2 29, BUN 25 with creatinine 0.7, GFR 81 and blood glucose 123. Troponin I is less than 0.012. ProBNP is 1160. AST is 46 with ALT 36. ABG reveals pH 7.388 with pCO2 46, PO2 76 and 95% saturation on 2 liters per nasal cannula. INR is 1.69 with PTT 63.0 and D-dimer less than 150. UA reveals elevated specific gravity greater than or equal to 1.030 with 1+ protein, trace blood and trace bacteria. Digoxin is therapeutic at 1.0. Respiratory PCR panel is positive for parainfluenza 3. HOSPITAL COURSE The patient was placed in inpatient admission status at [facility] under the hospitalist service. She was started on Levaquin for empiric antimicrobial coverage of pulmonary pathogens. Solu-Medrol was initiated to help minimize reactive airways. Nebulized treatments of DuoNeb and Pulmicort were initiated. Supplemental oxygen was provided. INR was monitored, with pharmacy managing Coumadin dosing. During the hospitalization, Dr. Butler was consulted. There was worry about volume overload - While her lab was showing intravascular dryness, she appeared essentially overloaded. Her home Lasix was restarted. Norvasc was initiated to help with blood pressure control. Cozaar was reinitiated. We did initiate Tessalon Perles to help with cough and congestion. We worked to wean off of oxygen. Steroids were gradually tapered down. PT was consulted to help increase strength and functional status. Acapella was initiated to help loosen secretions. Overall, though, she did make good improvements. By time of discharge she was able to be weaned off of oxygen and maintain saturations on room air. She felt her breathing was subjectively much improved. Her INR had remained stable during the hospitalization except for decrease to 1.80 on day of discharge. We felt with her course of antibiotic given in hospitalization she would not need further antimicrobial therapy in the outpatient setting. She will be returning to her usual dose of Coumadin. Blood pressure was showing significant improvement with Norvasc. Cough was better. She was ambulating well. In light of her good improvement she was able to be discharged to home. Narrative disclaimer: Above narrative is a brief summary of the patient's hospitalization; for complete details of the hospital course, refer to the medical record. DISCHARGE CONDITION Stable/good. DIET Low sodium. ACTIVITIES As tolerated. MEDICATIONS Prednisone 20 mg daily with breakfast x 5 days. Norvasc 5 mg daily. Benadryl 25 mg q.h.s. p.r.n. sleepiness/allergies. Mucinex DM b.i.d. p.r.n. cough/congestion. Labetalol 200 mg b.i.d. Nasal saline 2 sprays each nostril q.i.d. Digoxin 0.25 mg daily. Furosemide 40 mg p.r.n. Synthroid 0.025 mg daily. Cozaar 50 mg daily. Multivitamin daily. Zoloft 50 mg daily. Tramadol 50 mg t.i.d. p.r.n. Coumadin 5 mg daily. FOLLOWUP The patient will follow with Dr. Conteh in one week - recheck CMP and INR at that time. INSTRUCTIONS TO PATIENT The patient was instructed on her diagnosis and treatments provided. She was encouraged to be adherent with medications. We encouraged her on use of Acapella to help loosen secretions. Encouraged her to build up her strength and functional abilities. She will watch for temperature greater than 100.4, worsening shortness of air, congestion or chest pain. Should these or others problems occur, she will be in contact with Dr. Conteh. If symptoms become quite dire she can present to emergency room for acute evaluation. She voiced understanding of the above. Time spent with discharge greater 35 minutes. BRANDEN
== END 2016-11-18 17:38 | disposition home or self-care (01) | DRG 193 ==
LOC: ED 17:54 → MED 19:45 → EDHOLD 19:45
PROVIDERS: ADMIT Emergency Medicine; ATTEND Hospitalist
DX: J18.9 Pneumonia, unspecified organism (principal); J96.01 Acute respiratory failure with hypoxia; J45.901 Unspecified asthma with (acute) exacerbation; E86.0 Dehydration; B34.8 Other viral infections of unspecified site; I10 Essential (primary) hypertension; I48.2 Chronic atrial fibrillation; E87.70 Fluid overload, unspecified; F32.9 Major depressive disorder, single episode, unspecified; E78.5 Hyperlipidemia, unspecified; Z79.01 Long term (current) use of anticoagulants; Z79.899 Other long term (current) drug therapy
CPT/HCPCS: 36415; 80048; 80053; 80069; 80162; 81001; 82803; 83735; 83880; 84484; 85025; 85379; 85610; 85730; 87040; 87070; 87205; 87449; 87486; 87581; 87633; 87798; 93005; 93306; 94640; 94667; 94668; 96365; 96375